=== PATIENT | female | born 1940 | race Two or more races ===

== ENCOUNTER 2019-06-13 16:06 | Inpatient (IN) | payer OTHER, MEDICAID ==
[~2019-06-13] VITALS: Ht 165.1 cm; Wt 76.9 kg
[2019-06-13] MEDS ORDERED: MORPHINE SULFATE 4 MG/ML SYR/VIAL IV ONE (16:45)
[2019-06-13] MEDS ORDERED: ONDANSETRON HCL 4 MG/2 ML VIAL IV ONE (16:45)
[2019-06-13 17:17] LABS: Basophils % (auto) 0.6 % (0.0-2.0); Mean Corpuscular Hemoglobin 35.1 pg (28.0-32.0); Mean Corpuscular Hgb Conc. 34.9 g/dL (32.0-36.0); Mean Corpuscular Volume 100.4 fL (80.0-100.0); Red Cell Distribution Width 14.5 % (11.8-14.3)
[2019-06-13 17:18] LABS: Basophils # (auto) 0 uL; Eosinophils # (auto) 0.2 uL; Eosinophils % (auto) 2.9 % (0.0-7.0); Hematocrit 30.7 % (36.0-46.0); Hemoglobin 10.7 g/dL (12.2-16.2); Lymphocytes # (auto) 1.7 uL; Lymphocytes % (auto) 21.8 % (10.0-50.0); Monocytes # (auto) 0.5 uL; Monocytes % (auto) 7.1 % (0.0-12.0); Neutrophils # (auto) 5.2 uL; Neutrophils % (auto) 67.6 % (37.0-80.0); Platelet Count (auto) 304 10^3/uL (140-450); Red Blood Cells 3.06 10^6/uL (4.0-5.20); White Blood Cell 7.7 10^3/uL (4.4-10.8)
[2019-06-13 17:25] LABS: INR 1.18 (0.9-1.15); Partial Thromboplastin Time 30.2 sec (23.64-32.05)
[2019-06-13 17:27] LABS: Albumin 3.4 g/dL (3.4-5.0); BUN/Creatinine Ratio 4.3; Calcium 8.2 mg/dL (8.5-10.1)
[2019-06-13 17:29] LABS: Lactic Acid w/Reflex 2.1 mmol/L (0.4-2.0)
[2019-06-13 17:31] LABS: Potassium 2.8 mmol/L (3.5-5.1)
[2019-06-13 17:32] LABS: Bilirubin, Total 0.4 mg/dL (0.2-1.0); Total Protein 7.6 g/dL (6.4-8.2)
[2019-06-13] MEDS ORDERED: IOHEXOL 300 MG/ML 100ML BOTTLE IJ ONE (18:10)
[2019-06-13] MEDS ORDERED: POTASSIUM EFFERVESENT TAB 25 MEQ PO ONE (18:15)
[2019-06-13] MEDS ORDERED: LEVOFLOXACIN 500MG 100 ML IV ONE (18:45)
[2019-06-13] MEDS ORDERED: FUROSEMIDE 20 MG/2 ML VIAL ONE (20:37)
[2019-06-13] MEDS ORDERED: ONDANSETRON HCL 4 MG/2 ML VIAL IV PRN (21:15)
[2019-06-13] MEDS ORDERED: ACETAMINOPHEN 325 MG TAB PO PRN (21:15)
[2019-06-13] MEDS ORDERED: DEXTROSE (50%) 50ML SYRG IV PRN (21:15)
[2019-06-13] MEDS ORDERED: TEMAZEPAM 15 MG CAP PO PRN (21:15)
[2019-06-13] MEDS ORDERED: NITROGLYCERIN 0.4 MG SL TAB SL PRN (21:45)
[2019-06-13] MEDS ORDERED: MORPHINE SULF INJ 2 MG/ML SYRINGE 1ML IV PRN (21:45)
[2019-06-13] MEDS: CARVEDILOL 3.125 MG TAB PO SCH (22:47)
[2019-06-13] MEDS: APIXABAN 5 MG TAB PO SCH (22:48)
[2019-06-14] VITALS (7 sets, daily range): BP systolic 132–154; BP diastolic 57–79
--- NOTE | 2019-06-14 | NUR ---
Telemetry admit from ER OGODCLEMENCIA VEGA admitted to Telemetry unit after SBAR received. Patient oriented to ASHLEE WHITTNE RN primary RN, unit, room, bed, and unit policies regarding patient care and visiting hours. Patient complaining of 10/10 pain to the back, unable to lie on back, spinal bones visible from back. See eMar for pain management. Patient now on continuous telemetry monitoring, tele box # 82 and telemetry reading on arrival to unit is SR. Patient encouraged to call if they she needs something. All questions and concerns addressed, patient verbalized understanding. Will continue to monitor q1h and prn.
[2019-06-14] MEDS: ACCU-CHEK COMFORT CURVE STRIP VI SCH ×5 (00:30→23:30)
[2019-06-14] MEDS: HYDROcodone-ACET 5/325MG TAB PO PRN ×4 (00:31→21:13)
[2019-06-14] MEDS ORDERED: FURO40TA4 PO (01:48)
[2019-06-14] MEDS ORDERED: OMEP20TA PO (01:48)
[2019-06-14] MEDS ORDERED: CARV6.2551 PO (01:48)
[2019-06-14] MEDS ORDERED: AMLO5TAB15 PO (01:48)
[2019-06-14] MEDS ORDERED: APIX5TAB PO (01:48)
[2019-06-14] MEDS ORDERED: ACET30TA15 PO (01:48)
[2019-06-14] MEDS ORDERED: MEGE40TA15 PO (01:48)
--- NOTE | 2019-06-14 04:29 | NUR ---
MRSA SWAB SENT MRSA SWAB SENT TO LAB.
[2019-06-14] MEDS: InsuLIN REG 1unit/0.01ml Soln (100units/ml) SC SCH ×5 (05:17→23:29)
[2019-06-14] MEDS: FUROSEMIDE 40 MG TAB PO SCH ×2 (05:26→17:56)
[2019-06-14 05:56] LABS: Basophils # (auto) 0 uL; Basophils % (auto) 0.4 % (0.0-2.0); Eosinophils # (auto) 0.2 uL; Eosinophils % (auto) 3.7 % (0.0-7.0); Hematocrit 28.3 % (36.0-46.0); Hemoglobin 9.9 g/dL (12.2-16.2); Lymphocytes # (auto) 1.6 uL; Lymphocytes % (auto) 25.1 % (10.0-50.0); Mean Corpuscular Hemoglobin 35.1 pg (28.0-32.0); Mean Corpuscular Volume 100.2 fL (80.0-100.0); Monocytes # (auto) 0.5 uL; Monocytes % (auto) 7.7 % (0.0-12.0); Neutrophils % (auto) 63.1 % (37.0-80.0); Platelet Count (auto) 244 10^3/uL (140-450); Red Blood Cells 2.83 10^6/uL (4.0-5.20); Red Cell Distribution Width 14.6 % (11.8-14.3); White Blood Cell 6.4 10^3/uL (4.4-10.8)
[2019-06-14 06:26] LABS: BUN/Creatinine Ratio 4.2; Calcium 7.8 mg/dL (8.5-10.1)
[2019-06-14 06:34] LABS: Potassium 2.9 mmol/L (3.5-5.1)
--- NOTE | 2019-06-14 06:36 | NUR ---
K CRITICAL LAB K 2.9. AWARE OF PREVIOUS K 2.8 WHEN PATIENT WAS IN ER AND ORDERS WERE GIVEN. HOSPITALIST PAGED. AWAITING CALL BACK. WILL CONTINUE TO MONITOR.
--- NOTE | 2019-06-14 07:58 | NUR ---
Opening Shift Note Assumed care of patient, awake and alert. No S/S of distress/SOB or pain. Instructed on POC and to call for assist PRN, will continue to monitor for changes Q1hr and PRN.
[2019-06-14] MEDS ORDERED: POTASSIUM CHL 20 Meq TABLET PO ONE (08:15)
[2019-06-14] MEDS: CALCIUM ACETATE 667 MG CAP PO SCH ×3 (08:17→17:55)
[2019-06-14] MEDS: APIXABAN 5 MG TAB PO SCH ×2 (09:14→21:12)
[2019-06-14] MEDS: PANTOPRAZOLE 40 MG TAB PO SCH (09:14)
[2019-06-14] MEDS: CARVEDILOL 3.125 MG TAB PO SCH ×2 (09:15→21:12)
[2019-06-14] MEDS: amLODIPine BESYLATE 5 MG TAB PO SCH (09:15)
[2019-06-14] MEDS ORDERED: INFLUENZA QUAD 2019-2020 0.5ml SYRG IM ONE (10:00)
[2019-06-14] MEDS ORDERED: PNEUMOCOCCAL VACC POLYS 25 MCG/0.5 ML VIAL IM ONE (10:00)
--- NOTE | 2019-06-14 11:15 | NUR ---
Hospitalist Rounding Dr. Grey rounded on patient.
[2019-06-14 11:24] LABS: CRP High Sensitivity 0.15 mg/dL (< 0.3)
[2019-06-14 11:38] LABS: Folate (Folic Acid) 7.66 ng/mL (5.38-24)
[2019-06-14] MEDS ORDERED: VANCOMYCIN PER PHARMACY 0 MG IV SCH (16:00)
[2019-06-14] MEDS ORDERED: CYANOCOBALAMIN (B-12) 1000 MCG/1 ML VIAL SUBCUT ONE (16:00)
[2019-06-14] MEDS ORDERED: VANCOMYCIN 1GM/250ML 250 ML IV ONE (16:30)
[2019-06-14] MEDS ORDERED: MEROPENEM 1GM IVPB 100 ML IV SCH (18:00)
--- NOTE | 2019-06-14 18:00 | NUR ---
Accu Check Blood Sugar 131. Insulin held, patient ate 25% of her lunch and refusing supper.
[2019-06-14 20:56] LABS: Urine Bacteria FEW /hpf (None Seen); Urine Blood 2+ /uL (Negative); Urine Specific Gravity 1.026 (1.001-1.035); Urine WBC 1120 /hpf (0 - 5)
[2019-06-14] MEDS ORDERED: LEVOFLOXACIN 250MG 50 ML IV SCH (22:00)
--- NOTE | 2019-06-14 22:00 | NUR ---
PAGED HOSPITALIST RE: PT.ANTIBIOTIC WAS HELD BY PHARMACY, PT. ALLERGY TO PEN[place]ILLIN, WAITING TO CALL BACK.
[2019-06-15] MEDS: HYDROcodone-ACET 5/325MG TAB PO PRN ×4 (03:12→22:31)
[2019-06-15] MEDS: InsuLIN REG 1unit/0.01ml Soln (100units/ml) SC SCH ×3 (05:12→18:11)
[2019-06-15] MEDS: ACCU-CHEK COMFORT CURVE STRIP VI SCH ×3 (05:14→18:10)
[2019-06-15 05:27] VITALS: BP 147/60
[2019-06-15] MEDS: FUROSEMIDE 40 MG TAB PO SCH ×2 (05:31→18:13)
[2019-06-15 05:48] LABS: Basophils # (auto) 0.1 uL; Basophils % (auto) 1.3 % (0.0-2.0); Eosinophils # (auto) 0.3 uL; Eosinophils % (auto) 3.6 % (0.0-7.0); Hematocrit 31.2 % (36.0-46.0); Hemoglobin 10.6 g/dL (12.2-16.2); Lymphocytes # (auto) 1.6 uL; Lymphocytes % (auto) 19.8 % (10.0-50.0); Mean Corpuscular Hemoglobin 34.7 pg (28.0-32.0); Mean Corpuscular Hgb Conc. 34.1 g/dL (32.0-36.0); Mean Corpuscular Volume 101.8 fL (80.0-100.0); Monocytes # (auto) 0.6 uL; Monocytes % (auto) 7.3 % (0.0-12.0); Neutrophils # (auto) 5.6 uL; Nucleated Red Blood Cells % 0.1 %; Platelet Count (auto) 258 10^3/uL (140-450); Red Blood Cells 3.07 10^6/uL (4.0-5.20); Red Cell Distribution Width 14.5 % (11.8-14.3); White Blood Cell 8.2 10^3/uL (4.4-10.8)
[2019-06-15 06:05] LABS: Albumin 3.1 g/dL (3.4-5.0); Calcium 8.4 mg/dL (8.5-10.1); Magnesium 1.9 mg/dL (1.6-2.6); Potassium 3.8 mmol/L (3.5-5.1)
[2019-06-15 06:10] LABS: BUN/Creatinine Ratio 4.6; Bilirubin, Total 0.3 mg/dL (0.2-1.0); Total Protein 6.8 g/dL (6.4-8.2)
[2019-06-15] MEDS ORDERED: SODIUM CHL 0.9% 1000 ML BAG XX ONE (07:00)
--- NOTE | 2019-06-15 08:10 | NUR ---
nurse transitional Ary at bedside for patient's hemodialysis.
[2019-06-15] MEDS: CALCIUM ACETATE 667 MG CAP PO SCH ×3 (08:32→18:13)
--- NOTE | 2019-06-15 08:40 | NUR ---
[place] 5/325 PO given for pain.
[2019-06-15 09:00] VITALS: BP 152/63
--- NOTE | 2019-06-15 10:00 | NUR ---
Heparin 10,000 units (1 vial) endorsed to Dialysis Nurse Ary.
--- NOTE | 2019-06-15 11:30 | NUR ---
Hemodialysis done. About 3 L off, BP = 144/76, Heart Rate = 64 as per jewel staker Ary.
--- NOTE | 2019-06-15 11:44 | NUR ---
Dr. Grey came over. planned to transfer the patient to [facility].
[2019-06-15] MEDS: APIXABAN 5 MG TAB PO SCH ×2 (12:17→21:30)
[2019-06-15] MEDS: amLODIPine BESYLATE 5 MG TAB PO SCH (12:17)
[2019-06-15] MEDS: CYANOCOBALAMIN 500 MCG TAB PO SCH (12:18)
[2019-06-15] MEDS: CARVEDILOL 3.125 MG TAB PO SCH ×2 (12:18→21:30)
[2019-06-15] MEDS: PANTOPRAZOLE 40 MG TAB PO SCH (12:18)
[2019-06-15 13:00] VITALS: BP 145/64
--- NOTE | 2019-06-15 13:13 | NUR ---
Faxed transfer order/clinical information to [facility].
--- NOTE | 2019-06-15 13:44 | NUR ---
I spoke with Dona at the [facility] transfer center [phone]-provided her with additional clinical information as requested.
--- NOTE | 2019-06-15 14:16 | NUR ---
I called [facility] and spoke with Es in Admitting [phone] regarding the transfer request for this patient. Faxed her requested clinical information, she will speak with her MD and give me a call back.
--- NOTE | 2019-06-15 14:45 | NUR ---
Patient's daughter, granddaughter Nida ([phone]) at bedside. Nida requested if the doctor could call her regarding the patient's plan of care, her mother (patient's daughter) speaks Malay only.
--- NOTE | 2019-06-15 15:29 | NUR ---
assessment Patient is a 78 year old female who is alert and oriented who is Telugu speaking. Michelle RO is translating for us. Prior to admission patient lived home with family and functioned with assistance. Patient has a fww and a wheelchair for home use. Patient is on service with [facility] T TH Sat at 4am. Patient has medical transport to dialysis. I informed patient of her ss consult to transfer for higher level of care. I informed patient she has a right to speak to a social work therapist regarding all care. I informed patient she has a right to participate in any and all discharge planning. Patient does not have a POA and advanced directive. I have offered patient information on POA and advanced directives. I informed the patient the advantages and benefits of having an Advanced Directive. Patient verbalized understanding and agreed to discharge plan. Addendum: 06/15/19 at 1537 by Lenka ALFARO Amended: Links added.
[2019-06-15] MEDS ORDERED: VANCOMYCIN 1GM/250ML 250 ML IV ONE (16:00)
--- NOTE | 2019-06-15 16:17 | NUR ---
Patient stated she's in pain. [place] 5/325 given to patient.
[2019-06-15 17:00] VITALS: BP 123/59
--- NOTE | 2019-06-15 18:15 | NUR ---
assumed care, pt. awake, relatives at bedside, no c/o pain, not in distress.
--- NOTE | 2019-06-15 19:15 | NUR ---
assumed care, pt. awake, no c/o pain, relatives at bedside, not in distress.
[2019-06-15] MEDS ORDERED: EPOETIN ALFA 4,000 UNIT/ML VL SC ONE (21:00)
[2019-06-15] MEDS: ATORVASTATIN 20 MG TAB PO SCH (21:30)
[2019-06-15 22:00] VITALS: BP 122/53
[2019-06-16] MEDS: LEVOFLOXACIN 500MG 100 ML IV SCH ×2 (03:36→22:20)
[2019-06-16] MEDS: ACCU-CHEK COMFORT CURVE STRIP VI SCH ×5 (03:37→23:44)
[2019-06-16 05:00] VITALS: BP 138/53
[2019-06-16] MEDS: HYDROcodone-ACET 5/325MG TAB PO PRN ×4 (05:16→20:10)
[2019-06-16] MEDS: FUROSEMIDE 40 MG TAB PO SCH ×2 (05:16→17:16)
[2019-06-16] MEDS: InsuLIN REG 1unit/0.01ml Soln (100units/ml) SC SCH ×5 (05:50→23:44)
[2019-06-16 06:47] LABS: Albumin 3.1 g/dL (3.4-5.0); Calcium 8.7 mg/dL (8.5-10.1); Potassium 3.5 mmol/L (3.5-5.1)
[2019-06-16 06:49] LABS: BUN/Creatinine Ratio 3.8
[2019-06-16 06:51] LABS: Bilirubin, Total 0.5 mg/dL (0.2-1.0); Total Protein 7.1 g/dL (6.4-8.2)
[2019-06-16 09:00] VITALS: BP 151/72
[2019-06-16] MEDS: CARVEDILOL 3.125 MG TAB PO SCH ×3 (09:39→23:44)
[2019-06-16] MEDS: CALCIUM ACETATE 667 MG CAP PO SCH ×3 (09:39→17:16)
[2019-06-16] MEDS: PANTOPRAZOLE 40 MG TAB PO SCH (09:39)
--- NOTE | 2019-06-16 09:39 | NUR ---
Patient stated she's in pain. [place] 5/325 PO given for pain.
[2019-06-16] MEDS: amLODIPine BESYLATE 5 MG TAB PO SCH (09:40)
[2019-06-16] MEDS: CYANOCOBALAMIN 500 MCG TAB PO SCH (09:40)
[2019-06-16] MEDS: APIXABAN 5 MG TAB PO SCH ×2 (09:40→21:27)
--- NOTE | 2019-06-16 09:40 | NUR ---
Patient's son-in-law came over, stated they don't want the patient be transferred to another hospital. Explained to son-in-law we're waiting for the doctor to come over.
--- NOTE | 2019-06-16 11:20 | NUR ---
Charge Nurse Michelle spoke with the patient and family. Family refused to have the patient be transferred to another hospital for spinal surgery. IV line is out, IV catheter out, pressure dressing applied.
--- NOTE | 2019-06-16 11:36 | NUR ---
Dr. Grey at bedside. Sheridan translates in Luxembourgish for the patient.
--- NOTE | 2019-06-16 11:39 | NUR ---
Dr. Grey made aware Charge Nurse Michelle spoke with the patient and family. Family does not want the patient be transferred to another hospital for a spinal surgery. Informed Dr. Grey that patient has no IV access anymore, if he can order the IV antibiotics to be converted to pill form instead.
--- NOTE | 2019-06-16 11:45 | NUR ---
Called belen Alva ([phone]). Phone on [employer]. Left a message to call back. Dr. Grey made aware. Dr. Grey to call the granddaughter.
--- NOTE | 2019-06-16 11:47 | NUR ---
Dr. Grey ordered to [facility]. Paged the [facility].
--- NOTE | 2019-06-16 12:40 | NUR ---
Firmware Engineer Shazia Ryan called back. Shazia to call Dr. Grey again.
--- NOTE | 2019-06-16 12:42 | NUR ---
I received a call from Love at [facility] transfer center [phone] letting me know that her MD is declining this patient for transfer because they think this is something that our orthopedic doctor should be able to take care of. I called Dr. Grey to make him aware and to discuss the plan of care for this patient-awaiting return call.
--- NOTE | 2019-06-16 12:45 | NUR ---
New IV line inserted on the left hand, 22 gauge by Charge Nurse Michelle.
[2019-06-16 13:00] VITALS: BP 144/69
--- NOTE | 2019-06-16 14:26 | NUR ---
I spoke with Dr. Grey regarding the plan of care for this patient, he said no need to transfer to higher level of care at this time.
--- NOTE | 2019-06-16 15:12 | NUR ---
[place] 5/325 PO given for pain.
[2019-06-16 17:00] VITALS: BP 130/61
--- NOTE | 2019-06-16 19:45 | NUR ---
Opening Shift Note Assumed care of patient, AOX4. No S/S of distress/SOB. Fall and safety precautions in place. Call light within reach and able to use. Instructed on POC and to call for assist PRN, will continue to monitor for changes Q1hr and PRN.
[2019-06-16] MEDS: ATORVASTATIN 20 MG TAB PO SCH (21:27)
[2019-06-16 21:38] VITALS: BP 126/63
[2019-06-17] MEDS: HYDROcodone-ACET 5/325MG TAB PO PRN ×4 (01:15→15:41)
[2019-06-17 04:38] VITALS: BP 134/69
[2019-06-17] MEDS: FUROSEMIDE 40 MG TAB PO SCH (05:11)
[2019-06-17] MEDS: ACCU-CHEK COMFORT CURVE STRIP VI SCH ×2 (05:11→12:07)
[2019-06-17] MEDS: InsuLIN REG 1unit/0.01ml Soln (100units/ml) SC SCH ×2 (05:11→12:07)
--- NOTE | 2019-06-17 06:09 | NUR ---
DIALYSIS DIALYSIS NURSE AT BEDSIDE
[2019-06-17 06:13] LABS: BUN/Creatinine Ratio 4.7; Calcium 8.9 mg/dL (8.5-10.1); Potassium 3.8 mmol/L (3.5-5.1)
[2019-06-17] MEDS ORDERED: SODIUM CHL 0.9% 1000 ML BAG XX ONE (07:00)
--- NOTE | 2019-06-17 08:00 | NUR ---
Opening Shift Note Assumed care of patient, awake and alert. No S/S of distress/SOB or pain. Ongoing hemodialysis. Instructed on POC and to call for assist PRN, will continue to monitor for changes Q1hr and PRN.
[2019-06-17 09:00] VITALS: BP 140/64
--- NOTE | 2019-06-17 09:00 | NUR ---
Hemodialysis done, 3L out.
[2019-06-17] MEDS: CYANOCOBALAMIN 500 MCG TAB PO SCH (09:47)
[2019-06-17] MEDS: APIXABAN 5 MG TAB PO SCH (09:47)
[2019-06-17] MEDS: CALCIUM ACETATE 667 MG CAP PO SCH ×2 (09:47→12:00)
[2019-06-17] MEDS: CARVEDILOL 3.125 MG TAB PO SCH (09:48)
[2019-06-17] MEDS: PANTOPRAZOLE 40 MG TAB PO SCH (09:48)
[2019-06-17] MEDS: amLODIPine BESYLATE 5 MG TAB PO SCH (09:49)
[2019-06-17 12:35] VITALS: BP 143/59
[2019-06-17] MEDS ORDERED: VANCOMYCIN 500 MG in D5W 5% 100 ML IV ONE (16:00)
--- NOTE | 2019-06-17 16:18 | NUR ---
Clarified with granddaughter Nida, patient already received flu and Pneumococcal vaccines.
[2019-06-17 16:21] VITALS: BP 141/54
--- NOTE | 2019-06-17 17:00 | NUR ---
Discharge instructions given as ordered. Encourage to follow up with PMD Arielle Hicks on 07-05-19 at 2:45pm as instructed. Per Dr. Grey, instructions given to patient's granddaughter Nida to call his office on Wednesday. All questions and concerns addressed. Patient verbalized understanding. Medication reconciliation form completed and copy given to pain. IV removed with catheter intact, pressure dressing applied. Telemetry unit returned to ICU. Patient taken to vehicle via wheelchair with all personal belongings, accompanied by staff and family member. No distress noted at time of departure.
== END 2019-06-17 17:00 | disposition home or self-care (01) | DRG 551 ==
LOC: ER 16:06 → TELE 16:07 → TELE-WESTW 23:25
PROVIDERS: ADMIT Nurse Practitioner; ATTEND Internal Medicine
PROC: 5A1D70Z Performance of Urinary Filtration, Intermittent, Less than 6 Hours Per Day (ICD-10-PCS; principal; 2019-06-15)
PROC: 5A1D70Z Performance of Urinary Filtration, Intermittent, Less than 6 Hours Per Day (ICD-10-PCS; 2019-06-17)
DX: M48.061 Spinal stenosis, lumbar region without neurogenic claudication (principal); J18.9 Pneumonia, unspecified organism; N18.6 End stage renal disease; I50.43 Acute on chronic combined systolic (congestive) and diastolic (congestive) heart failure; E87.2 Acidosis; J98.11 Atelectasis; I13.2 Hypertensive heart and chronic kidney disease with heart failure and with stage 5 chronic kidney disease, or end stage renal disease; M54.5 Low back pain; G89.29 Other chronic pain; E87.5 Hyperkalemia; D63.8 Anemia in other chronic diseases classified elsewhere; E11.22 Type 2 diabetes mellitus with diabetic chronic kidney disease; Z79.4 Long term (current) use of insulin; Z79.01 Long term (current) use of anticoagulants; I07.1 Rheumatic tricuspid insufficiency; E87.6 Hypokalemia; Z95.0 Presence of cardiac pacemaker; Z98.1 Arthrodesis status; Z88.0 Allergy status to penicillin
CPT/HCPCS: 36415; 71045; 72132; 80048; 80053; 80061; 80202; 81001; 82607; 82746; 82962; 83036; 83605; 83735; 83880; 84443; 84484; 85025; 85048; 85610; 85652; 85730; 86141; 87040; 87081; 90935; 93306; 96365; 96375; G0378; J1642; J1815; J1956; J2185; J2405; J7060

== ENCOUNTER 2019-07-15 12:37 | Inpatient (IN) | payer OTHER, MEDICAID ==
[~2019-07-15] VITALS: Ht 165.1 cm; Wt 81.0 kg
[~2019-07-15 12:37] MED LIST: ACET30TA15 PO; AMLO5TAB15 PO; APIX5TAB PO; CARV6.2551 PO; FURO40TA4 PO; MEGE40TA15 PO; OMEP20TA PO
[2019-07-15 15:14] LABS: Basophils # (auto) 0.1 uL
[2019-07-15 15:15] LABS: Basophils % (auto) 0.8 % (0.0-2.0); Eosinophils # (auto) 0.1 uL; Hematocrit 31.6 % (36.0-46.0); Lymphocytes # (auto) 1.2 uL; Lymphocytes % (auto) 16.5 % (10.0-50.0); Mean Corpuscular Hemoglobin 35.4 pg (28.0-32.0); Mean Corpuscular Hgb Conc. 34.7 g/dL (32.0-36.0); Monocytes # (auto) 0.5 uL; Monocytes % (auto) 7.5 % (0.0-12.0); Neutrophils # (auto) 5.4 uL; Neutrophils % (auto) 74.2 % (37.0-80.0); Nucleated Red Blood Cells % 0.1 %; Platelet Count (auto) 336 10^3/uL (140-450); Red Blood Cells 3.09 10^6/uL (4.0-5.20); Red Cell Distribution Width 15.4 % (11.8-14.3); White Blood Cell 7.3 10^3/uL (4.4-10.8)
[2019-07-15 15:25] LABS: Albumin 3.5 g/dL (3.4-5.0); Calcium 8.7 mg/dL (8.5-10.1)
[2019-07-15 15:30] LABS: BUN/Creatinine Ratio 3.5; Bilirubin, Total 0.5 mg/dL (0.2-1.0); Total Protein 7.4 g/dL (6.4-8.2)
[2019-07-15 16:19] LABS: Potassium 2.9 mmol/L (3.5-5.1)
[2019-07-15] MEDS ORDERED: POTASSIUM CHL 20MEQ/100ML 100 ML IV ONE (16:45)
[2019-07-15 16:56] LABS: INR 1.18 (0.9-1.15); Partial Thromboplastin Time 29.6 sec (23.64-32.05)
[2019-07-15] MEDS ORDERED: MORPHINE SULF INJ 2 MG/ML SYRINGE 1ML IV PRN (20:15)
[2019-07-15] MEDS ORDERED: DOCUSATE SOD 100 MG CAP PO PRN (20:15)
[2019-07-15] MEDS ORDERED: NITROGLYCERIN 0.4 MG SL TAB SL PRN (20:15)
[2019-07-15] MEDS ORDERED: ACETAMINOPHEN 325 MG TAB PO PRN (20:15)
[2019-07-15] MEDS ORDERED: LORazepam 0.5 MG TAB PO PRN (20:15)
[2019-07-15] MEDS ORDERED: DEXTROSE (50%) 50ML SYRG IV PRN (20:15)
[2019-07-15] MEDS: ONDANSETRON HCL 4 MG/2 ML VIAL IV PRN (22:02)
[2019-07-15] MEDS: MORPHINE SULFATE 4 MG/ML SYR/VIAL IV PRN (22:03)
[2019-07-15] MEDS ORDERED: diphenhdrAMINE HCL 50 MG/1 ML VL IV ONE (22:15)
[2019-07-16 03:30] VITALS: BP 145/71
--- NOTE | 2019-07-16 03:40 | NUR ---
Telemetry admit from [facility] admitted to Telemetry unit. Patient oriented to Edita SheriffRN primary RN, unit, room, bed, and unit policies regarding patient care and visiting hours. Patient now on continuous telemetry monitoring, tele box #75 and telemetry reading on arrival to unit is NSR. Patient awake, AAOx4. No S/S of distress/SOB. Pain 10/10 to back. On 2L oxygen via nasal cannula. Wheelchair at bedside. Bed in lowest locked position, side rails up x2, call light within reach. Instructed on POC and to call for assist PRN, will continue to monitor for changes Q1hr and PRN. Weighed by bed scale and encouraged to call if they need something. All questions and concerns addressed, patient verbalized understanding. Will continue to monitor every hour and as needed.
[2019-07-16] MEDS: MORPHINE SULFATE 4 MG/ML SYR/VIAL IV PRN ×2 (03:42→15:04)
[2019-07-16] MEDS: ONDANSETRON HCL 4 MG/2 ML VIAL IV PRN ×2 (03:42→12:24)
[2019-07-16] MEDS: InsuLIN REG 1unit/0.01ml Soln (100units/ml) SC SCH ×6 (04:00→20:25)
[2019-07-16] MEDS: ACCU-CHEK COMFORT CURVE STRIP VI SCH ×6 (04:31→20:23)
--- NOTE | 2019-07-16 04:56 | NUR ---
MED REC PATIENT UNABLE TO VERIFY HOME MEDICATIONS. PATIENT TO HAVE DAUGHTER/CAREGIVER BRING IN LIST OF ALL ACTIVE HOME MEDICATIONS.
[2019-07-16 05:42] VITALS: BP 145/71
[2019-07-16 07:45] LABS: Basophils # (auto) 0.1 uL; Eosinophils # (auto) 0.2 uL; Mean Corpuscular Hemoglobin 35.3 pg (28.0-32.0); White Blood Cell 6.3 10^3/uL (4.4-10.8)
[2019-07-16 07:46] LABS: Eosinophils % (auto) 2.9 % (0.0-7.0); Hemoglobin 9.9 g/dL (12.2-16.2); Lymphocytes # (auto) 1.4 uL; Lymphocytes % (auto) 21.6 % (10.0-50.0); Mean Corpuscular Hgb Conc. 34.2 g/dL (32.0-36.0); Mean Corpuscular Volume 103.1 fL (80.0-100.0); Monocytes # (auto) 0.5 uL; Monocytes % (auto) 8.5 % (0.0-12.0); Neutrophils # (auto) 4.2 uL; Nucleated Red Blood Cells % 0.1 %; Platelet Count (auto) 298 10^3/uL (140-450); Red Blood Cells 2.81 10^6/uL (4.0-5.20); Red Cell Distribution Width 15.5 % (11.8-14.3)
--- NOTE | 2019-07-16 07:50 | NUR ---
Opening Shift Note Assumed care of patient, awake and alert, laying in bed uncomplaining. No S/S of distress/SOB or pain. Instructed on POC and to call for assist PRN, will continue to monitor for changes Q1hr and PRN.
[2019-07-16 08:06] LABS: BUN/Creatinine Ratio 3.5; Calcium 7.9 mg/dL (8.5-10.1)
[2019-07-16 08:38] VITALS: BP 131/61
[2019-07-16] MEDS ORDERED: amLODIPine BESYLATE 5 MG TAB PO SCH (10:00)
[2019-07-16] MEDS ORDERED: FUROSEMIDE 40 MG TAB PO SCH (10:00)
[2019-07-16] MEDS ORDERED: CARVEDILOL 3.125 MG TAB PO SCH (10:00)
[2019-07-16] MEDS ORDERED: APIXABAN 5 MG TAB PO SCH ×2 (10:00→11:25)
[2019-07-16] MEDS: MEGESTROL ACETATE 20 MG TAB PO SCH (10:08)
[2019-07-16] MEDS: PANTOPRAZOLE 40 MG TAB PO SCH (10:09)
[2019-07-16] MEDS: ACETAMINOPHEN/CODEINE#3 (300/30mg) TAB PO SCH (10:09)
--- NOTE | 2019-07-16 11:20 | NUR ---
Hospitalist Neetu Pond at bedside.
--- NOTE | 2019-07-16 11:41 | NUR ---
Medication Reconciliation Received order from Dr. Pond to continue Eliquis and Coreg as per home schedule. Entered in eMAR.
[2019-07-16 12:41] VITALS: BP 130/71
[2019-07-16 16:42] VITALS: BP 138/70
[2019-07-16] MEDS ORDERED: FUROSEMIDE 40 MG/4 ML VIAL IV ONE ×2 (19:00→19:30)
[2019-07-16] MEDS: LEVOFLOXACIN 500MG 100 ML IV SCH (20:26)
[2019-07-16] MEDS: CARVEDILOL 3.125 MG TAB PO SCH (21:15)
[2019-07-16] MEDS: APIXABAN 5 MG TAB PO SCH (21:15)
--- NOTE | 2019-07-16 22:00 | NUR ---
IV insertion IV access obtained, via clean sterile technique by inserting 22 gauge catheter at left wrist after attempt by Shelley Will IV secured properly. No trauma to site. Patient tolerated procedure well.
--- NOTE | 2019-07-16 22:00 | NUR ---
IV removal IV DC'd in the left forearm with clean sterile technique, catheter fully intact. Pressure dressing applied to site. Patient tolerated well.
[2019-07-16 22:02] VITALS: BP 140/68
[2019-07-17] MEDS: ACCU-CHEK COMFORT CURVE STRIP VI SCH ×7 (00:31→23:31)
--- NOTE | 2019-07-17 01:07 | NUR ---
Called Dr. Aleja Welsh for itching medicine with order of 5omg.cap.every 8 hours as needed.
[2019-07-17] MEDS: diphenhdrAMINE HCL 25 MG CAP PO PRN (01:39)
[2019-07-17] MEDS: InsuLIN REG 1unit/0.01ml Soln (100units/ml) SC SCH ×7 (03:56→23:32)
[2019-07-17 05:00] VITALS: BP 130/54
[2019-07-17] MEDS: FUROSEMIDE 40 MG/4 ML VIAL IV SCH ×2 (06:00→18:14)
[2019-07-17] MEDS ORDERED: SODIUM CHL 0.9% 1000 ML BAG XX ONE (07:00)
[2019-07-17 07:09] LABS: Basophils # (auto) 0 uL; Eosinophils # (auto) 0.2 uL; Lymphocytes # (auto) 0.8 uL; Lymphocytes % (auto) 10.4 % (10.0-50.0); Mean Corpuscular Hemoglobin 35.5 pg (28.0-32.0)
[2019-07-17 07:10] LABS: Basophils % (auto) 0.3 % (0.0-2.0); Hematocrit 31.6 % (36.0-46.0); Hemoglobin 10.6 g/dL (12.2-16.2); Mean Corpuscular Hgb Conc. 33.5 g/dL (32.0-36.0); Mean Corpuscular Volume 105.7 fL (80.0-100.0); Monocytes # (auto) 0.4 uL; Monocytes % (auto) 6.1 % (0.0-12.0); Neutrophils # (auto) 5.9 uL; Neutrophils % (auto) 80.2 % (37.0-80.0); Platelet Count (auto) 288 10^3/uL (140-450); Red Blood Cells 2.99 10^6/uL (4.0-5.20); Red Cell Distribution Width 15.7 % (11.8-14.3); White Blood Cell 7.3 10^3/uL (4.4-10.8)
[2019-07-17 07:34] LABS: Calcium 8.3 mg/dL (8.5-10.1); Magnesium 1.8 mg/dL (1.6-2.6); Potassium 3.5 mmol/L (3.5-5.1)
[2019-07-17 07:41] LABS: % Iron Saturation 20.8 % (15-50); BUN/Creatinine Ratio 4.9; Bilirubin, Total 0.4 mg/dL (0.2-1.0); Phosphorus 1.7 mg/dL (2.5-4.90); Total Protein 6.6 g/dL (6.4-8.2)
--- NOTE | 2019-07-17 07:43 | NUR ---
Report given to Shelley Pennington,patient is resting no distress.
--- NOTE | 2019-07-17 07:44 | NUR ---
Opening Shift Note Assumed care of patient, awake and alert. No S/S of distress/SOB or pain. Patient for hemodialysis today and patient is aware. Instructed on POC and to call for assist PRN, will continue to monitor for changes Q1hr and PRN.
[2019-07-17 07:46] LABS: INR 1.16 (0.9-1.15); Partial Thromboplastin Time 30.1 sec (23.64-32.05)
[2019-07-17 08:00] VITALS: BP 137/58
[2019-07-17 09:02] LABS: Ferritin 577.3 ng/mL (10-322)
--- NOTE | 2019-07-17 09:15 | NUR ---
Patient noted to be having hemodialysis in her room at this time.
[2019-07-17] MEDS: ACETAMINOPHEN/CODEINE#3 (300/30mg) TAB PO SCH (10:10)
--- NOTE | 2019-07-17 12:15 | NUR ---
Hemodialysis done and report received from federal appellate clerk. Patient tolerated the procedure well.
[2019-07-17] MEDS: PANTOPRAZOLE 40 MG TAB PO SCH (12:23)
[2019-07-17] MEDS: CARVEDILOL 3.125 MG TAB PO SCH ×2 (12:24→22:08)
[2019-07-17] MEDS: APIXABAN 5 MG TAB PO SCH ×2 (12:24→22:08)
[2019-07-17] MEDS: MEGESTROL ACETATE 20 MG TAB PO SCH (12:24)
[2019-07-17] MEDS: MORPHINE SULFATE 4 MG/ML SYR/VIAL IV PRN ×2 (12:46→22:10)
[2019-07-17 13:00] VITALS: BP_SYST 150; BP_SYST 186; BP_DIAS 71; BP_DIAS 96
[2019-07-17 17:00] VITALS: BP 134/58
--- NOTE | 2019-07-17 19:35 | NUR ---
Opening Shift Note Assumed care of patient, awake and alert oriented x4. Bed is in lowest locked position with bed rails up x2 and call light is within reach of the patient. No S/S of distress/SOB or pain noted. Instructed on POC and to call for assist PRN.
--- NOTE | 2019-07-17 21:30 | NUR ---
Pharmacy called: Pharmacy called for clarification from Dr. Grey regarding B12 injection for AM being contraindicated with Vitamin B12 lab value. Also asked for clarification regarding Levaquin AM dose and penicillin allergy. Dr. Grey not present at this time for clarification. Will notify AM nurse.
--- NOTE | 2019-07-17 21:55 | NUR ---
Radiology called: Radiology called for clarification of ultrasound order for right upper extremity, if for DVT or abscess rule out. Grey not available to clarify which order it was for and was not notified per report. Will make Day shift RN aware for clarification.
[2019-07-17 22:00] VITALS: BP 131/61
[2019-07-17] MEDS: ATORVASTATIN 20 MG TAB PO SCH (22:09)
[2019-07-18] MEDS: InsuLIN REG 1unit/0.01ml Soln (100units/ml) SC SCH ×5 (04:00→20:00)
[2019-07-18] MEDS: ACCU-CHEK COMFORT CURVE STRIP VI SCH ×5 (04:57→20:00)
[2019-07-18 05:00] VITALS: BP 133/65
--- NOTE | 2019-07-18 05:00 | NUR ---
Family member at bedside: Family member is at the bedside and brought patient her nasal decongestant spray she takes at home. Patient is requesting to use spray. Will page hospitalist.
--- NOTE | 2019-07-18 05:26 | NUR ---
Hospitalist called back: Hospitalist alan called back and approved for patient to take nasal decongestant spray that patient brought up from home. To place orders.
[2019-07-18] MEDS: FUROSEMIDE 40 MG/4 ML VIAL IV SCH ×2 (06:05→17:59)
--- NOTE | 2019-07-18 06:45 | NUR ---
POM sent to pharmacy: POM med sent to pharmacy and notified them to send the med as soon as possible for the patient.
--- NOTE | 2019-07-18 07:12 | NUR ---
OPENING SHIFT NOTES Assumed care of patient from night stocker RN. Patient is alert and oriented x4, no sign s of distress noted. Patient was updated on the plan of care and verbalized understanding. Wheelchair noted at bedside. Bed is locked, in the lowest position, side rails up x2 and call light is in reach. Patient was encouraged to call for assistance when needed.
--- NOTE | 2019-07-18 08:06 | NUR ---
Patient refused Insulin Patient blood glucose level 152, patient refused insulin. Educated patient on insulin usage and dose, patient verbalized understanding but continues to refuse.
--- NOTE | 2019-07-18 08:42 | NUR ---
Paged Dr. Grey for order clarification for ultrasound, awaiting call back.
[2019-07-18 09:00] VITALS: BP 144/71
[2019-07-18] MEDS: AFRIN NASAL SPRAY EACHNOSTRI PRN ×2 (09:05→23:06)
[2019-07-18] MEDS: MORPHINE SULFATE 4 MG/ML SYR/VIAL IV PRN (09:05)
--- NOTE | 2019-07-18 09:20 | NUR ---
ANGELLA AT BEDSIDE No new orders received.
[2019-07-18] MEDS ORDERED: CYANOCOBALAMIN (B-12) 1000 MCG/1 ML VIAL SUBCUT SCH (10:00)
[2019-07-18] MEDS: diphenhdrAMINE HCL 25 MG CAP PO PRN (10:31)
[2019-07-18] MEDS: APIXABAN 5 MG TAB PO SCH ×2 (10:32→22:31)
[2019-07-18] MEDS: MEGESTROL ACETATE 20 MG TAB PO SCH (10:32)
[2019-07-18] MEDS: PANTOPRAZOLE 40 MG TAB PO SCH (10:32)
[2019-07-18] MEDS: CARVEDILOL 3.125 MG TAB PO SCH ×2 (10:33→22:30)
[2019-07-18] MEDS: ACETAMINOPHEN/CODEINE#3 (300/30mg) TAB PO SCH (10:33)
--- NOTE | 2019-07-18 11:30 | NUR ---
assessment Patient is a 78 year old female who is German speaking. Kristan SW1 translated for us. Prior to admission patient lived home with her granddaughter Radha and functioned with assistance. Per patient she will return home to her prior living arrangements post discharge and family will transport her home. Patient is on dialysis with [facility]. Patient has a wheelchair for home use. Patients PCP is Dr Grey. Patient has good family support. Patient feels safe returning home on discharge. Patient has no post discharge needs at this time. I informed patient she has a right to speak to a social science analyst regarding all care. I informed patient she has a right to participate in any and all discharge planning. Patient does not have a POA and advanced directive. I have offered patient information on POA and advanced directives. I informed the patient the advantages and benefits of having an Advanced Directive. Patient verbalized understanding and agreed to discharge plan. Addendum: 07/19/19 at 1454 by Lenka ALFARO Amended: Links added.
[2019-07-18 13:00] VITALS: BP 148/67
--- NOTE | 2019-07-18 16:07 | NUR ---
Nutrition Assessment Notes Please refer to link for full assessment notes Est energy needs: 2592-2198 kcals (30-35 kcals /kg Adj BW) d/t pt ESRD/HD Est protein needs: 69-75 gms/day (1.1-1.2 gm/kg AdjBW) d/t pt ESRD/HD Will continue to monitor and reassess prn Addendum: 07/18/19 at [address] Amended: Links added.
[2019-07-18 17:00] VITALS: BP 136/64
--- NOTE | 2019-07-18 19:18 | NUR ---
Closing shift notes Care endorsed to maintenance technician 3rd shift RN. No signs of distress noted.
[2019-07-18] MEDS: LEVOFLOXACIN 500MG 100 ML IV SCH (19:30)
--- NOTE | 2019-07-18 19:30 | NUR ---
Opening Shift Note Assumed care of patient, awake and alert. Maltese speaking. No S/S of distress/SOB or pain. 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 Patient is ambulatory with the use of a wheelchair at baseline. Instructed on POC and to call for assist PRN, will continue to monitor for changes Q1hr and PRN.
[2019-07-18 20:00] VITALS: BP 152/70
[2019-07-18 22:00] VITALS: BP 152/70
[2019-07-18] MEDS: ATORVASTATIN 20 MG TAB PO SCH (22:31)
[2019-07-18] MEDS: HYDROcodone-ACET 5/325MG TAB PO PRN (23:08)
--- NOTE | 2019-07-19 | NUR ---
Refusal BG is 151. Patient is refusing insulin coverage per the sliding scale.
[2019-07-19] MEDS: ACCU-CHEK COMFORT CURVE STRIP VI SCH ×4 (00:01→11:56)
[2019-07-19] MEDS: InsuLIN REG 1unit/0.01ml Soln (100units/ml) SC SCH ×4 (03:38→11:56)
[2019-07-19] MEDS: HYDROcodone-ACET 5/325MG TAB PO PRN ×2 (03:38→11:53)
--- NOTE | 2019-07-19 03:49 | NUR ---
Refusal BG is 140. Patient is refusing insulin per sliding scale. Medicated for 7/10 chronic back pain at this time as well.
[2019-07-19] MEDS: MORPHINE SULFATE 4 MG/ML SYR/VIAL IV PRN (04:42)
[2019-07-19 05:00] VITALS: BP 148/74
[2019-07-19] MEDS: diphenhdrAMINE HCL 25 MG CAP PO PRN (05:29)
[2019-07-19] MEDS: FUROSEMIDE 40 MG/4 ML VIAL IV SCH (05:29)
[2019-07-19] MEDS: ONDANSETRON HCL 4 MG/2 ML VIAL IV PRN (06:29)
[2019-07-19] MEDS ORDERED: SODIUM CHL 0.9% 1000 ML BAG XX ONE (07:00)
[2019-07-19 09:00] VITALS: BP 146/67
--- NOTE | 2019-07-19 09:20 | NUR ---
Dialysis nurse at bedside, Dialysis started.
[2019-07-19] MEDS: PANTOPRAZOLE 40 MG TAB PO SCH (09:55)
[2019-07-19] MEDS: MEGESTROL ACETATE 20 MG TAB PO SCH (09:56)
[2019-07-19] MEDS: ACETAMINOPHEN/CODEINE#3 (300/30mg) TAB PO SCH (09:56)
[2019-07-19 13:00] VITALS: BP 153/76
--- NOTE | 2019-07-19 13:00 | NUR ---
DIALYSIS NOTE PER DIAYLSIS NURSE 3 LITERS TAKEN OFF END VITALS 159/73 HEART RATE 69.
[2019-07-19] MEDS: APIXABAN 5 MG TAB PO SCH (13:39)
[2019-07-19] MEDS: CARVEDILOL 3.125 MG TAB PO SCH (13:40)
--- NOTE | 2019-07-19 15:44 | NUR ---
PATIENT BLOOD PRESSURE 159/70 PER DOCTOR GÓMEZ PATIENT OKAY TO DISCHARGE.
--- NOTE | 2019-07-19 15:53 | NUR ---
Discharge instructions given as ordered. Encourage to follow up with PMD as instructed. All questions and concerns addressed. Patient verbalized understanding. Medication reconciliation form completed and copy given to patient. Home medications held in Pharmacy returned to patient, and NO needed vaccines given. IV removed with catheter intact, pressure dressing applied. Telemetry unit returned to ICU. Patient taken to vehicle via wheelchair with all personal belongings, accompanied by staff and family member. No distress noted at time of departure.
== END 2019-07-19 15:53 | disposition home or self-care (01) | DRG 682 ==
LOC: ER 12:42 → TELE 12:43 → TELE-WESTW 07-16 03:31
PROVIDERS: ADMIT Hospitalist; ATTEND Internal Medicine
PROC: 5A1D70Z Performance of Urinary Filtration, Intermittent, Less than 6 Hours Per Day (ICD-10-PCS; 2019-07-17)
PROC: 5A1D70Z Performance of Urinary Filtration, Intermittent, Less than 6 Hours Per Day (ICD-10-PCS; principal; 2019-07-19)
DX: N17.9 Acute kidney failure, unspecified (principal); I50.43 Acute on chronic combined systolic (congestive) and diastolic (congestive) heart failure; J18.9 Pneumonia, unspecified organism; I13.2 Hypertensive heart and chronic kidney disease with heart failure and with stage 5 chronic kidney disease, or end stage renal disease; E87.1 Hypo-osmolality and hyponatremia; N18.6 End stage renal disease; E87.6 Hypokalemia; R79.89 Other specified abnormal findings of blood chemistry; Z99.2 Dependence on renal dialysis; E11.22 Type 2 diabetes mellitus with diabetic chronic kidney disease; E66.01 Morbid (severe) obesity due to excess calories; I48.91 Unspecified atrial fibrillation; G89.29 Other chronic pain; I27.20 Pulmonary hypertension, unspecified; M54.9 Dorsalgia, unspecified; I25.10 Atherosclerotic heart disease of native coronary artery without angina pectoris; D63.8 Anemia in other chronic diseases classified elsewhere; Z79.01 Long term (current) use of anticoagulants; Z79.4 Long term (current) use of insulin; Z95.0 Presence of cardiac pacemaker; Z88.0 Allergy status to penicillin; Z68.29 Body mass index [BMI] 29.0-29.9, adult; Z87.891 Personal history of nicotine dependence
CPT/HCPCS: 36415; 71045; 72100; 80048; 80053; 80061; 82550; 82607; 82728; 82962; 83036; 83540; 83550; 83735; 83880; 84100; 84132; 84443; 84484; 85025; 85610; 85730; 87081; 93005; 93971; 96374; G0378; J1642; J1815; J1956; J2405; J3480

== ENCOUNTER 2019-07-23 22:31 | Inpatient (IN) | payer OTHER, MEDICAID ==
[~2019-07-23] VITALS: Ht 165.1 cm; Wt 73.6 kg
[2019-07-23] MEDS ORDERED: ONDANSETRON HCL 4 MG/2 ML VIAL IV ONE (23:45)
[2019-07-23] MEDS ORDERED: MORPHINE SULF INJ 2 MG/ML SYRINGE 1ML IV ONE (23:45)
[2019-07-23 23:55] LABS: Basophils # (auto) 0.1 uL; Monocytes # (auto) 0.6 uL; Red Cell Distribution Width 15.2 % (11.8-14.3)
[2019-07-23 23:57] LABS: Basophils % (auto) 1.1 % (0.0-2.0); Eosinophils # (auto) 0.2 uL; Eosinophils % (auto) 2.5 % (0.0-7.0); Hematocrit 32.9 % (36.0-46.0); Hemoglobin 11.2 g/dL (12.2-16.2); Lymphocytes # (auto) 1.3 uL; Lymphocytes % (auto) 19.7 % (10.0-50.0); Mean Corpuscular Hemoglobin 34.6 pg (28.0-32.0); Mean Corpuscular Hgb Conc. 34.1 g/dL (32.0-36.0); Mean Corpuscular Volume 101.4 fL (80.0-100.0); Monocytes % (auto) 9.3 % (0.0-12.0); Neutrophils # (auto) 4.5 uL; Neutrophils % (auto) 67.4 % (37.0-80.0); Platelet Count (auto) 288 10^3/uL (140-450); Red Blood Cells 3.24 10^6/uL (4.0-5.20); White Blood Cell 6.6 10^3/uL (4.4-10.8)
[2019-07-24] VITALS (7 sets, daily range): BP systolic 133–158; BP diastolic 61–74
[2019-07-24] MEDS ORDERED: IPRATROPIUM BROM 0.5 MG/2.5ML INH SOL NEB ONE
[2019-07-24] MEDS ORDERED: ALBUTEROL SULF 2.5 MG/0.5ML(0.5%) NEB SOLN NEB ONE
[2019-07-24 00:09] LABS: INR 1.23 (0.9-1.15); Partial Thromboplastin Time 33.4 sec (23.64-32.05)
[2019-07-24 00:11] LABS: Albumin 3.5 g/dL (3.4-5.0); BUN/Creatinine Ratio 5.1; Calcium 8.5 mg/dL (8.5-10.1); Potassium 3.5 mmol/L (3.5-5.1)
[2019-07-24 00:15] LABS: Bilirubin, Total 0.5 mg/dL (0.2-1.0); Total Protein 7.6 g/dL (6.4-8.2)
[2019-07-24] MEDS ORDERED: MORPHINE SULFATE 4 MG/ML SYR/VIAL IV ONE (03:00)
[2019-07-24] MEDS ORDERED: DOCUSATE SOD 100 MG CAP PO PRN (04:15)
[2019-07-24] MEDS ORDERED: MORPHINE SULF INJ 2 MG/ML SYRINGE 1ML IV PRN (04:15)
[2019-07-24] MEDS ORDERED: DEXTROSE (50%) 50ML SYRG IV PRN (04:15)
[2019-07-24] MEDS ORDERED: NITROGLYCERIN 0.4 MG SL TAB SL PRN (04:15)
[2019-07-24] MEDS ORDERED: ACETAMINOPHEN 325 MG TAB PO PRN (04:15)
[2019-07-24] MEDS ORDERED: ONDANSETRON HCL 4 MG/2 ML VIAL IV PRN (04:15)
[2019-07-24 05:15] LABS: Urine Bacteria MANY /hpf (None Seen); Urine Blood 1+ /uL (Negative); Urine Specific Gravity 1.014 (1.001-1.035); Urine WBC 49 /hpf (0 - 5); Urine WBC Clumps PRESENT /hpf (None Seen)
[2019-07-24 06:43] LABS: Basophils # (auto) 0 uL; Basophils % (auto) 0.8 % (0.0-2.0); Eosinophils # (auto) 0.2 uL; Lymphocytes # (auto) 1.4 uL; Monocytes # (auto) 0.6 uL
[2019-07-24 06:44] LABS: Eosinophils % (auto) 2.8 % (0.0-7.0); Hematocrit 29.8 % (36.0-46.0); Hemoglobin 10.3 g/dL (12.2-16.2); Lymphocytes % (auto) 23.4 % (10.0-50.0); Mean Corpuscular Hemoglobin 35.1 pg (28.0-32.0); Mean Corpuscular Hgb Conc. 34.6 g/dL (32.0-36.0); Mean Corpuscular Volume 101.6 fL (80.0-100.0); Monocytes % (auto) 9.2 % (0.0-12.0); Neutrophils # (auto) 3.9 uL; Neutrophils % (auto) 63.8 % (37.0-80.0); Nucleated Red Blood Cells % 0.1 %; Platelet Count (auto) 250 10^3/uL (140-450); Red Blood Cells 2.94 10^6/uL (4.0-5.20); Red Cell Distribution Width 15.3 % (11.8-14.3); White Blood Cell 6.1 10^3/uL (4.4-10.8)
[2019-07-24 07:20] LABS: BUN/Creatinine Ratio 5.6; Calcium 8.3 mg/dL (8.5-10.1); Potassium 3.4 mmol/L (3.5-5.1)
[2019-07-24] MEDS: ACCU-CHEK COMFORT CURVE STRIP VI SCH ×4 (08:34→20:00)
[2019-07-24] MEDS: InsuLIN REG 1unit/0.01ml Soln (100units/ml) SC SCH ×4 (08:34→20:00)
--- NOTE | 2019-07-24 09:10 | NUR ---
Telemetry admit from ER FLORENTINOCLEMENCIA admitted to Telemetry unit after SBAR received from JIA Varela. Patient oriented to GUILLERMO HUDDLESTON RN primary RN, unit, room, bed, and unit policies regarding patient care and visiting hours. Patient now on continuous telemetry monitoring, tele box #13 and telemetry reading on arrival to unit is NSR 64bpm. Patient placed on bedside oxygen @ 2L n/c, weighed by bedscale and encouraged to call if they need something.Bed in lowest/locked position, bed rails up x2,call light within reach. Patient instructed on POC. All questions and concerns addressed, patient verbalized understanding.
[2019-07-24] MEDS: cefTRIAXone 1GM/50ML D5W 50 ML IV SCH (10:35)
[2019-07-24] MEDS: MORPHINE SULFATE 4 MG/ML SYR/VIAL IV PRN ×3 (10:36→21:17)
[2019-07-24] MEDS: PANTOPRAZOLE 40 MG TAB PO SCH (10:36)
[2019-07-24] MEDS: APIXABAN 5 MG TAB PO SCH ×2 (10:36→21:31)
[2019-07-24] MEDS: FUROSEMIDE 40 MG/4 ML VIAL IV SCH ×2 (10:36→21:31)
[2019-07-24] MEDS: CARVEDILOL 3.125 MG TAB PO SCH ×2 (10:37→21:31)
[2019-07-24] MEDS: amLODIPine BESYLATE 5 MG TAB PO SCH (10:42)
--- NOTE | 2019-07-24 13:00 | NUR ---
MD ROUNDS DR MAGAÑA AT BEDSIDE DISCUSSING POC WITH PATIENT. ALL QUESTIONS/CONCERNS ANSWERED. NEW ORDERS RECEIVED/CARRIED OUT. WILL CONTINUE TO MONITOR
[2019-07-24] MEDS: AZITHROMYCIN 250 MG TAB PO SCH (14:56)
[2019-07-24] MEDS: HYDROcodone-ACET 5/325MG TAB PO PRN (17:35)
--- NOTE | 2019-07-24 19:10 | NUR ---
Opening Shift Note Assumed care of patient, awake and alert. No S/S of distress/SOB or pain. Instructed on POC and to call for assist PRN, will continue to monitor for changes Q1hr and PRN. Bed placed in lowest position, bed alarm turned and call light within reach.
--- NOTE | 2019-07-24 19:18 | NUR ---
Respiratory note: AT BEDSIDE TO ASSESS FOR PRN TX. TX NOT INDICATED AT THIS TIME. PT MACEDONIAN SPEAKER ONLY. BS ARE CLEAR DIMINISHED T/O , HR 70S, POX 95-97% ON RA. RT NAME AND PAGER ASSIGNMENT WRITTEN ON PTS ROOM BOARD. WILL CONTINUE TO MONITOR.
[2019-07-24] MEDS: FLUTICASONE PROP NASAL SPR 0.05 % (50MCG) 16GM EACHNOSTRI SCH (21:21)
[2019-07-25] VITALS (7 sets, daily range): BP systolic 137–148; BP diastolic 63–80
--- NOTE | 2019-07-25 | NUR ---
INSTRUCTED PATIENT NOT TO EAT OR DRINK AFTER MIDNIGHT FOR THE COMING CARDIOLITE STRESS TEST.
[2019-07-25] MEDS: MORPHINE SULFATE 4 MG/ML SYR/VIAL IV PRN ×2 (03:26→08:09)
[2019-07-25] MEDS: InsuLIN REG 1unit/0.01ml Soln (100units/ml) SC SCH ×6 (04:00→20:00)
--- NOTE | 2019-07-25 04:00 | NUR ---
ASSISTED PATIENT TO REPOSITION TO LEFT SIDE, BUT PATIENT TURN TO RIGHT AGAIN STATING THAT SHE IS NOT COMFORTABLE TO POSITION TO LEFT.
[2019-07-25] MEDS: ACCU-CHEK COMFORT CURVE STRIP VI SCH ×6 (04:10→20:10)
--- NOTE | 2019-07-25 05:00 | NUR ---
IV insertion IV access obtained, via clean sterile technique by inserting 22 gauge catheter at left wrist after first attempt. IV secured properly. No trauma to site. Patient tolerated well.
--- NOTE | 2019-07-25 05:06 | NUR ---
ROUNDS ASSISTED PATIENT TO USE BEDPAN. PATIENT HAD 2 EPISODES OF INCONTINENTS OF URINE THE WHOLE NIGHT.
--- NOTE | 2019-07-25 07:15 | NUR ---
Opening Shift Note Assumed care of patient, awake and alert. No S/S of distress/SOB or pain. Instructed on POC and to call for assist PRN, will continue to monitor for changes Q1hr and PRN. Fall precautions in place per safety protocol.
[2019-07-25] MEDS: FLUTICASONE PROP NASAL SPR 0.05 % (50MCG) 16GM EACHNOSTRI SCH ×2 (09:37→21:55)
[2019-07-25] MEDS: FUROSEMIDE 40 MG/4 ML VIAL IV SCH ×2 (09:37→21:58)
[2019-07-25] MEDS: cefTRIAXone 1GM/50ML D5W 50 ML IV SCH (09:37)
[2019-07-25] MEDS: AZITHROMYCIN 250 MG TAB PO SCH (09:38)
[2019-07-25] MEDS: CARVEDILOL 3.125 MG TAB PO SCH ×2 (09:38→21:59)
[2019-07-25] MEDS: amLODIPine BESYLATE 5 MG TAB PO SCH (09:38)
[2019-07-25] MEDS: PANTOPRAZOLE 40 MG TAB PO SCH (09:38)
[2019-07-25] MEDS: APIXABAN 5 MG TAB PO SCH ×2 (09:38→21:59)
[2019-07-25] MEDS ORDERED: ADENOSINE 65 MG in GIVE UN-DILUTED 0 ML IV STA (09:55)
--- NOTE | 2019-07-25 10:30 | NUR ---
Hospitalist at bedside MD Grey at bedside, aware of patient status. Awaiting stress test. Per MD Grey, if stress test negative, then patient can go home. Will cont to monitor patient.
--- NOTE | 2019-07-25 11:43 | NUR ---
Respiratory note: PT ASSESSED FOR PRN MED NEB TX, NO TX DESIRED AT THIS TIME NOR INDICATED. HR 76 RR 16 SPO2 95% BREATH SOUNDS ARE DIMINISHED T/O. PT AND RN AWARE TO HAVE RT PAGED IF NEEDED.
[2019-07-25] MEDS: HYDROcodone-ACET 5/325MG TAB PO PRN ×2 (15:29→20:07)
--- NOTE | 2019-07-25 19:15 | NUR ---
Care endorsed Endorsed care to night RN Meri. Patient resting in bed, no distress, sob, or pain noted at this time.
--- NOTE | 2019-07-25 19:20 | NUR ---
Opening Shift Note Received report from inna Velazquez RN. Assumed care of patient, awake and alert. No S/S of distress/SOB but continues to c/o pain to generalized back. Will give pain medication as ordered. Instructed on POC and to call for assist PRN, will continue to monitor for changes Q1hr and PRN. Bed placed in lowest position, bed alarm turned and call light within reach.
[2019-07-25] MEDS: ALBUTEROL SULF 2.5 MG/0.5ML(0.5%) NEB SOLN NEB PRN (21:55)
[2019-07-25] MEDS: IPRATROPIUM BROM 0.5 MG/2.5ML INH SOL NEB PRN (21:55)
[2019-07-26] MEDS: ACCU-CHEK COMFORT CURVE STRIP VI SCH ×6 (00:05→19:49)
[2019-07-26] MEDS: HYDROcodone-ACET 5/325MG TAB PO PRN ×5 (00:08→19:50)
[2019-07-26] MEDS: InsuLIN REG 1unit/0.01ml Soln (100units/ml) SC SCH ×6 (04:00→19:48)
[2019-07-26 05:00] VITALS: BP 145/67
[2019-07-26] MEDS ORDERED: SODIUM CHL 0.9% 1000 ML BAG XX ONE (07:00)
--- NOTE | 2019-07-26 08:00 | NUR ---
Patient receiving Dialysis at this time.
[2019-07-26 08:44] VITALS: BP 147/69
[2019-07-26] MEDS: CARVEDILOL 3.125 MG TAB PO SCH ×2 (10:00→21:33)
[2019-07-26] MEDS: APIXABAN 5 MG TAB PO SCH ×2 (10:00→21:33)
[2019-07-26] MEDS: PANTOPRAZOLE 40 MG TAB PO SCH (10:00)
[2019-07-26] MEDS: FUROSEMIDE 40 MG/4 ML VIAL IV SCH ×2 (10:00→21:32)
[2019-07-26] MEDS: FLUTICASONE PROP NASAL SPR 0.05 % (50MCG) 16GM EACHNOSTRI SCH ×2 (10:00→21:31)
[2019-07-26] MEDS: AZITHROMYCIN 250 MG TAB PO SCH (10:00)
[2019-07-26] MEDS: amLODIPine BESYLATE 5 MG TAB PO SCH (10:00)
--- NOTE | 2019-07-26 11:30 | NUR ---
Dialysis done, 3L output, patient tolerated well. VSS stable. Patient now going for VQ Scan. Will cont to monitor patient when she comes back to unit.
[2019-07-26 12:23] VITALS: BP 147/66
--- NOTE | 2019-07-26 12:47 | NUR ---
NUTRITION ASSESSMENT NOTES Please refer to link notes of nutrition screen form filed under the intervention section of the plan of care for further details. Est. Needs: 1500 kcal to 1900 kcal (20-25 kcal/kgBW), 68 gms to 86 gms pro (1.2-1.5 gms/kgIBW: 57 kg d/t ESRD on HD). Will continue to monitor pertinent labs and reassess nutrient need prn Thank you. Addendum: 07/26/19 at [address] Amended: Links added.
--- NOTE | 2019-07-26 13:12 | NUR ---
ASSESSED PT FOR MED NEB PRN BREATHING TX, PT ON RA WITH SPO2 92%, HR 86, RR 20 WITH CLEAR/DIMINISHED BS. NO INDICATION FOR PRN MED NEB TX. WILL CONTINUE TO MONITOR PT.
--- NOTE | 2019-07-26 13:35 | NUR ---
assessment Patient is still out for a procedure. I have checked back twice. I will follow up in the AM. Addendum: 07/26/19 at 1636 by Lenka ALFARO Amended: Links added.
--- NOTE | 2019-07-26 14:00 | NUR ---
Patient back in room. No signs of distress, sob, or pain noted. Patient eating Lunch at this time. Will cont to monitor patient. Will attempt IV when patient is done with lunch.
[2019-07-26 16:28] VITALS: BP 132/63
--- NOTE | 2019-07-26 17:01 | NUR ---
assessment Patient is a 78 year old Citizen Of [place] speaking female. Caroline RO translated. Prior to admission patient lived home with her daughter Jesenia and functioned with assistance. Per patient she will return home to her prior living arrangements post discharge and family will transport her home. Patient is on dialysis with [facility] dialysis T TH SAT at 2am. Patient has a wheelchair for home use. Patients daughter Denise is her caregiver. Patients post discharge needs to be determined prior to discharge. I informed patient she has a right to speak to a addiction social worker regarding all care. I informed patient she has a right to participate in any and all discharge planning. Patient does not have a POA and advanced directive. I have offered patient information on POA and advanced directives. I informed the patient the advantages and benefits of having an Advanced Directive. Patient verbalized understanding and agreed to discharge plan. Addendum: 07/26/19 at 1703 by Lenka ALFARO Amended: Links added.
[2019-07-26] MEDS: cefTRIAXone 1GM/50ML D5W 50 ML IV SCH (17:49)
[2019-07-26] MEDS: ALBUTEROL SULF 2.5 MG/0.5ML(0.5%) NEB SOLN NEB PRN (18:28)
[2019-07-26] MEDS: IPRATROPIUM BROM 0.5 MG/2.5ML INH SOL NEB PRN (18:28)
--- NOTE | 2019-07-26 18:30 | NUR ---
RT NOTE PT WAS SEEN BY RT FOR PRN HHN TX. PT TOLERATES WELL VIA MASK. NO ADVERSE REACTION NOTED. CONT ORDERED Addendum: 07/26/19 at 1858 by Odalys Ang RT Amended: Links added.
--- NOTE | 2019-07-26 19:15 | NUR ---
Opening Shift Note Received report from inna Velazquez RN. Assumed care of patient, awake and alert. No S/S of distress/SOB but continues to c/o pain to generalized back . Will give pain medication as ordered. Instructed on POC and to call for assist PRN, will continue to monitor for changes Q1hr and PRN. Bed placed in lowest position, bed alarm turned and call light within reach.
--- NOTE | 2019-07-26 19:24 | NUR ---
Care endorsed Endorsed care to night RN Meri. Patient resting in bed, no distress, sob, or pain noted at this time.
[2019-07-26 20:00] VITALS: BP 121/66
[2019-07-26 21:47] VITALS: BP 121/56
[2019-07-27] MEDS: ACCU-CHEK COMFORT CURVE STRIP VI SCH ×7 (00:06→23:53)
[2019-07-27] MEDS: HYDROcodone-ACET 5/325MG TAB PO PRN ×5 (00:07→21:51)
[2019-07-27] MEDS: InsuLIN REG 1unit/0.01ml Soln (100units/ml) SC SCH ×7 (03:49→23:53)
[2019-07-27 05:30] VITALS: BP 148/68
--- NOTE | 2019-07-27 06:09 | NUR ---
ROUNDS PATIENT IS ALERT AND ORIENTED, NO DISTRESS NOTED. PATIENT RECEIVED PAIN MEDICATION AT 0400. ENCOURAGED PATIENT TO GET UP TO USE COMMODE, BUT PATIENT INSISTED ON BEDPAN. WILL MONITOR.
[2019-07-27 08:00] VITALS: BP 151/71
[2019-07-27] MEDS ORDERED: ADENOSINE 60 MG in GIVE UN-DILUTED 0 ML IV STA (08:42)
[2019-07-27 09:00] VITALS: BP 151/71
[2019-07-27] MEDS: CARVEDILOL 3.125 MG TAB PO SCH ×2 (10:00→21:50)
--- NOTE | 2019-07-27 10:30 | NUR ---
Patient off unit for stress test. Will cont to monitor when patient returns. No distress noted at time of departure.
[2019-07-27] MEDS: cefTRIAXone 1GM/50ML D5W 50 ML IV SCH (11:06)
[2019-07-27] MEDS: FUROSEMIDE 40 MG/4 ML VIAL IV SCH ×2 (11:07→21:50)
[2019-07-27] MEDS: amLODIPine BESYLATE 5 MG TAB PO SCH (11:08)
[2019-07-27] MEDS: AZITHROMYCIN 250 MG TAB PO SCH (11:11)
[2019-07-27] MEDS: PANTOPRAZOLE 40 MG TAB PO SCH (11:12)
[2019-07-27] MEDS: FLUTICASONE PROP NASAL SPR 0.05 % (50MCG) 16GM EACHNOSTRI SCH ×2 (11:13→21:49)
[2019-07-27] MEDS: APIXABAN 5 MG TAB PO SCH ×2 (11:13→21:50)
--- NOTE | 2019-07-27 11:16 | NUR ---
RT NOTE: WENT TO PTS ROOM TO ASSESS FOR PRN BREATHING TX, PT WAS IN WHEELCHAIR FOR PROCEDURE. HR 80, SPO2 97% ON 3L NC, NO S/S OF SOB. NO INDICATION FOR TX AT THIS TIME. WILL CONTINUE TO MONITOR PT.
[2019-07-27 15:11] VITALS: BP 148/68
[2019-07-27 17:00] VITALS: BP 127/65
[2019-07-27 22:00] VITALS: BP 142/63
--- NOTE | 2019-07-28 03:15 | NUR ---
Opening Shift Note Assumed care of patient, patient asleep verbally awake and alert. No S/S of distress/SOB or pain. Instructed on POC and to call for assist PRN, will continue to monitor for changes Q1hr and PRN.
--- NOTE | 2019-07-28 03:33 | NUR ---
Care endorsed Endorsed care to night JIA Reddy. Patient resting in bed, no signs of distress/sob noted at this time.
[2019-07-28] MEDS: HYDROcodone-ACET 5/325MG TAB PO PRN ×3 (03:38→13:40)
[2019-07-28] MEDS: InsuLIN REG 1unit/0.01ml Soln (100units/ml) SC SCH ×3 (03:42→11:22)
[2019-07-28] MEDS: ACCU-CHEK COMFORT CURVE STRIP VI SCH ×3 (03:42→11:23)
[2019-07-28 05:00] VITALS: BP 141/71
--- NOTE | 2019-07-28 05:38 | NUR ---
RT NOTE: WENT TO PTS ROOM TO ASSESS FOR PRN BREATHING TX, PT SITTING UP IN BED NO S/S OF SOB. HR 74, RR 16, SPO2 96% ON 2L NC. NO INDICATION FOR TX, WILL CONTINUE TO MONITOR PT.
--- NOTE | 2019-07-28 08:10 | NUR ---
dialysis called stated dialysis will be around 1100
[2019-07-28] MEDS: cefTRIAXone 1GM/50ML D5W 50 ML IV SCH (08:34)
[2019-07-28] MEDS: APIXABAN 5 MG TAB PO SCH (08:36)
[2019-07-28] MEDS: FLUTICASONE PROP NASAL SPR 0.05 % (50MCG) 16GM EACHNOSTRI SCH (08:36)
[2019-07-28] MEDS: PANTOPRAZOLE 40 MG TAB PO SCH (08:36)
[2019-07-28] MEDS: AZITHROMYCIN 250 MG TAB PO SCH (08:36)
[2019-07-28] MEDS: amLODIPine BESYLATE 5 MG TAB PO SCH (08:37)
[2019-07-28] MEDS: FUROSEMIDE 40 MG/4 ML VIAL IV SCH (08:37)
[2019-07-28] MEDS: CARVEDILOL 3.125 MG TAB PO SCH (08:37)
[2019-07-28 09:00] VITALS: BP 160/72
[2019-07-28] MEDS ORDERED: SODIUM CHL 0.9% 1000 ML BAG XX ONE (11:15)
[2019-07-28 13:00] VITALS: BP 149/72
--- NOTE | 2019-07-28 13:28 | NUR ---
notified nuclear medicine regarding pt finishing dialysis at 2pm, md sierra rounded on patient, per md pt is to be discharged if the vq scan is negative
--- NOTE | 2019-07-28 14:01 | NUR ---
daughter maciel notified of pt being discharged stated he will picking tech patient around 1600
--- NOTE | 2019-07-28 14:10 | NUR ---
dialysis completed on patient taken 2.5 liters out, bp 168/80 hr 76 r 118 97% ra
[2019-07-28 14:17] VITALS: BP 160/72
--- NOTE | 2019-07-28 16:35 | NUR ---
called family to inquire when they will be here to pick pack worker the patient
[2019-07-28 17:00] VITALS: BP 142/63
--- NOTE | 2019-07-28 17:13 | NUR ---
pt left with family to home wheel chair down to lobby and ambulated to the car peripheral iv removed tele box sent back to tele room no respiratory distress noted
== END 2019-07-28 17:12 | disposition home or self-care (01) | DRG 291 ==
LOC: EDBD 22:31 → ER 22:33 → TELE 22:34 → TELE-EAST 07-24 09:11
PROVIDERS: ADMIT Hospitalist; ATTEND Internal Medicine Nephrology
PROC: 02H633Z Insertion of Infusion Device into Right Atrium, Percutaneous Approach (ICD-10-PCS; principal; 2019-07-23)
PROC: 5A1D70Z Performance of Urinary Filtration, Intermittent, Less than 6 Hours Per Day (ICD-10-PCS; 2019-07-26)
PROC: 5A1D70Z Performance of Urinary Filtration, Intermittent, Less than 6 Hours Per Day (ICD-10-PCS; 2019-07-28)
DX: I13.2 Hypertensive heart and chronic kidney disease with heart failure and with stage 5 chronic kidney disease, or end stage renal disease (principal); I50.41 Acute combined systolic (congestive) and diastolic (congestive) heart failure; N18.6 End stage renal disease; J96.01 Acute respiratory failure with hypoxia; J81.1 Chronic pulmonary edema; J90 Pleural effusion, not elsewhere classified; E11.22 Type 2 diabetes mellitus with diabetic chronic kidney disease; M54.9 Dorsalgia, unspecified; Z96.89 Presence of other specified functional implants; R07.89 Other chest pain; E87.6 Hypokalemia; D63.8 Anemia in other chronic diseases classified elsewhere; J45.909 Unspecified asthma, uncomplicated; Z88.0 Allergy status to penicillin; Z79.899 Other long term (current) drug therapy; Z99.2 Dependence on renal dialysis; Z91.19 Patient's noncompliance with other medical treatment and regimen; Z80.0 Family history of malignant neoplasm of digestive organs; Z79.4 Long term (current) use of insulin
CPT/HCPCS: 36415; 71045; 78452; 80048; 80053; 81001; 82962; 83036; 83605; 83880; 84484; 85025; 85379; 85610; 85730; 87040; 87081; 90935; 93005; 93017; 93971; 94640; 96374; 96375; 96376; G0378; J0153; J0696; J1642; J2405

== ENCOUNTER 2019-07-31 22:34 | Emergency (ER) | payer OTHER, MEDICAID ==
[~2019-07-31] VITALS: Ht 165.1 cm; Wt 83.9 kg
[2019-07-31 23:13] LABS: Eosinophils # (auto) 0.2 uL; Lymphocytes # (auto) 1.1 uL
[2019-07-31 23:14] LABS: Basophils # (auto) 0 uL; Basophils % (auto) 0.2 % (0.0-2.0); Eosinophils % (auto) 2.9 % (0.0-7.0); Hematocrit 32.5 % (36.0-46.0); Hemoglobin 11.3 g/dL (12.2-16.2); Lymphocytes % (auto) 14.5 % (10.0-50.0); Mean Corpuscular Hgb Conc. 34.7 g/dL (32.0-36.0); Mean Corpuscular Volume 100.8 fL (80.0-100.0); Monocytes # (auto) 0.6 uL; Monocytes % (auto) 7.4 % (0.0-12.0); Neutrophils # (auto) 5.8 uL; Platelet Count (auto) 300 10^3/uL (140-450); Red Blood Cells 3.23 10^6/uL (4.0-5.20); Red Cell Distribution Width 15.2 % (11.8-14.3); White Blood Cell 7.7 10^3/uL (4.4-10.8)
[2019-07-31 23:30] LABS: Albumin 3.3 g/dL (3.4-5.0); BUN/Creatinine Ratio 5.9; Calcium 8.2 mg/dL (8.5-10.1); Magnesium 1.8 mg/dL (1.6-2.6); Potassium 3.7 mmol/L (3.5-5.1)
[2019-07-31 23:33] LABS: Bilirubin, Total 0.4 mg/dL (0.2-1.0); Total Protein 7.4 g/dL (6.4-8.2)
[2019-08-01] MEDS ORDERED: cloNIDine HCL 0.1 MG TAB PO ONE (01:45)
[2019-08-01] MEDS ORDERED: FUROSEMIDE 40 MG/4 ML VIAL IV ONE (02:00)
[2019-08-01] MEDS ORDERED: ONDANSETRON ODT 4 MG TAB PO ONE (03:45)
[2019-08-01] MEDS ORDERED: HYDROcodone-ACET 5/325MG TAB PO ONE (03:45)
[2019-08-01 04:00] VITALS: BP 176/78
== END 2019-08-01 04:16 | disposition home or self-care (01) ==
LOC: EDBD 22:34 → ER 22:35
DX: I20.9 Angina pectoris, unspecified (principal); G89.4 Chronic pain syndrome; I16.0 Hypertensive urgency; J45.909 Unspecified asthma, uncomplicated; I12.0 Hypertensive chronic kidney disease with stage 5 chronic kidney disease or end stage renal disease; E11.22 Type 2 diabetes mellitus with diabetic chronic kidney disease; N18.6 End stage renal disease; Z76.0 Encounter for issue of repeat prescription; Z88.0 Allergy status to penicillin
CPT/HCPCS: 36415; 80053; 83735; 83880; 84484; 85025; 93005; 99284; Q0162

== ENCOUNTER 2019-08-22 04:29 | Inpatient (IN) | payer OTHER, MEDICAID ==
[~2019-08-22] VITALS: Ht 152.4 cm; Wt 74.8 kg
[2019-08-22] MEDS ORDERED: SODIUM CHLORIDE 0.9% 1,000 ML IV ONE (04:58)
[2019-08-22] MEDS ORDERED: MORPHINE SULFATE 4 MG/ML SYR/VIAL IV ONE (05:00)
[2019-08-22] MEDS ORDERED: ONDANSETRON HCL 4 MG/2 ML VIAL IV ONE (05:00)
[2019-08-22 06:03] LABS: Basophils # (auto) 0.1 uL; Eosinophils # (auto) 0.1 uL; Nucleated Red Blood Cells % 0.1 %
[2019-08-22 06:06] LABS: Basophils % (auto) 0.7 % (0.0-2.0); Hematocrit 32.1 % (36.0-46.0); Mean Corpuscular Hemoglobin 33.9 pg (28.0-32.0); Mean Corpuscular Hgb Conc. 34.2 g/dL (32.0-36.0); Mean Corpuscular Volume 99.2 fL (80.0-100.0); Monocytes # (auto) 0.5 uL; Monocytes % (auto) 4.7 % (0.0-12.0); Neutrophils # (auto) 9.3 uL; Neutrophils % (auto) 84.6 % (37.0-80.0); Platelet Count (auto) 426 10^3/uL (140-450); Red Blood Cells 3.23 10^6/uL (4.0-5.20); Red Cell Distribution Width 15.9 % (11.8-14.3)
[2019-08-22 06:16] LABS: INR 1.17 (0.9-1.15); Partial Thromboplastin Time 26.2 sec (23.64-32.05)
[2019-08-22 08:19] LABS: Urine Bacteria FEW /hpf (None Seen); Urine Blood 1+ /uL (Negative); Urine Specific Gravity 1.011 (1.001-1.035); Urine WBC 37 /hpf (0 - 5)
[2019-08-22 08:45] LABS: Calcium 7.9 mg/dL (8.5-10.1); Potassium 3.4 mmol/L (3.5-5.1)
[2019-08-22 08:48] LABS: Bilirubin, Total 0.4 mg/dL (0.2-1.0); Total Protein 6.9 g/dL (6.4-8.2)
[2019-08-22] MEDS ORDERED: hydrALAZINE HCL 20 MG/ML VL IV PRN (10:15)
[2019-08-22] MEDS ORDERED: NITROGLYCERIN 0.4 MG SL TAB SL PRN (10:15)
[2019-08-22] MEDS ORDERED: MORPHINE SULF INJ 2 MG/ML SYRINGE 1ML IV PRN (10:15)
[2019-08-22] MEDS: MORPHINE SULF INJ 2 MG/ML SYRINGE 1ML IV PRN ×2 (10:40→16:31)
[2019-08-22] MEDS: ONDANSETRON HCL 4 MG/2 ML VIAL IV PRN (10:46)
[2019-08-22] MEDS: HYDROcodone-ACET 5/325MG TAB PO PRN (14:31)
[2019-08-22] MEDS ORDERED: SODIUM CHL 0.9% 1000 ML BAG XX ONE (15:45)
[2019-08-22 17:17] VITALS: BP 153/73
[2019-08-22 17:23] VITALS: BP 153/82
[2019-08-22 22:00] VITALS: BP 167/84
--- NOTE | 2019-08-22 22:56 | NUR ---
dialysis nurse reports completion of treatment. 2.5L removed. pt is resting with eyes closed, breathing even and unlabored. pt call light in reach, bed locked, low and 2x rails up. this nurse to round q1hr and prn. no distress noted.
[2019-08-22] MEDS: CARVEDILOL 3.125 MG TAB PO SCH (23:00)
--- NOTE | 2019-08-23 00:33 | NUR ---
pt refused to have IV started at this time. will attempt at later time. no distress noted or expressed. call light in reach.
[2019-08-23] MEDS: MORPHINE SULF INJ 2 MG/ML SYRINGE 1ML IV PRN ×3 (01:06→10:00)
[2019-08-23] MEDS: CARVEDILOL 3.125 MG TAB PO SCH ×3 (01:06→17:52)
[2019-08-23 05:13] VITALS: BP 147/71
[2019-08-23 06:10] LABS: Basophils # (auto) 0 uL; Basophils % (auto) 0.2 % (0.0-2.0); Eosinophils # (auto) 0 uL; Hematocrit 29.7 % (36.0-46.0); Hemoglobin 9.9 g/dL (12.2-16.2); Lymphocytes # (auto) 0.4 uL; Lymphocytes % (auto) 2.1 % (10.0-50.0); Mean Corpuscular Hgb Conc. 33.4 g/dL (32.0-36.0); Mean Corpuscular Volume 98.9 fL (80.0-100.0); Monocytes # (auto) 0.5 uL; Monocytes % (auto) 2.3 % (0.0-12.0); Neutrophils # (auto) 19.6 uL; Neutrophils % (auto) 95.4 % (37.0-80.0); Platelet Count (auto) 291 10^3/uL (140-450); Red Blood Cells 3.01 10^6/uL (4.0-5.20); Red Cell Distribution Width 15.8 % (11.8-14.3); White Blood Cell 20.6 10^3/uL (4.4-10.8)
[2019-08-23 06:27] LABS: INR 1.28 (0.9-1.15); Partial Thromboplastin Time 34.5 sec (23.64-32.05)
[2019-08-23 06:40] LABS: Potassium 3.7 mmol/L (3.5-5.1)
[2019-08-23 06:45] LABS: BUN/Creatinine Ratio 3.5
--- NOTE | 2019-08-23 08:00 | NUR ---
Received pt resting in bed, call light within reach, pt reports pain on back after with movement 02/04, will continue to monitor pt.
[2019-08-23] MEDS: ONDANSETRON HCL 4 MG/2 ML VIAL IV PRN ×2 (08:27→17:20)
[2019-08-23 08:58] VITALS: BP 149/63
[2019-08-23] MEDS: cefTRIAXone 1GM/50ML D5W 50 ML IV SCH (09:26)
[2019-08-23] MEDS: PANTOPRAZOLE 40 MG TAB PO SCH (09:27)
[2019-08-23] MEDS: FUROSEMIDE 40 MG TAB PO SCH (09:42)
[2019-08-23] MEDS: amLODIPine BESYLATE 5 MG TAB PO SCH (09:42)
--- NOTE | 2019-08-23 11:25 | NUR ---
Dr. Grey at bed side to see pt, doctor informed that thoracentesis will be done today and that pt has not been checked for blood sugar, received orders to call ultrasound to re-schedule the thoracentesis for tomorrow due to pt possibly receiving the Eliquis yesterday.
[2019-08-23] MEDS: ACETAMINOPHEN 500 MG TAB PO PRN (11:51)
[2019-08-23 13:00] VITALS: BP 141/70
[2019-08-23 17:03] VITALS: BP 133/66
[2019-08-23] MEDS: HYDROcodone-ACET 5/325MG TAB PO PRN (18:06)
[2019-08-23 22:00] VITALS: BP 120/60
[2019-08-24] MEDS: HYDROcodone-ACET 5/325MG TAB PO PRN ×3 (00:07→22:39)
[2019-08-24 05:00] VITALS: BP 137/60
[2019-08-24] MEDS: ACETAMINOPHEN 500 MG TAB PO PRN ×2 (05:12→14:44)
--- NOTE | 2019-08-24 05:16 | NUR ---
paged hospitalist for pt complaint of itching.
[2019-08-24] MEDS ORDERED: diphenhdrAMINE HCL 25 MG CAP PO ONE (06:30)
--- NOTE | 2019-08-24 07:55 | NUR ---
JIA Hathaway called asking when was the last time patient had Eliquis, blood thinner.
--- NOTE | 2019-08-24 07:58 | NUR ---
Called JIA Hathaway that JEREMY Rodriguez interpreted for patient in Serbian that patient had Eliquis last Wednesday, 2019.
--- NOTE | 2019-08-24 08:00 | NUR ---
Assisted the patient to bedside commode.
[2019-08-24] MEDS: CARVEDILOL 3.125 MG TAB PO SCH ×2 (08:14→17:55)
--- NOTE | 2019-08-24 08:15 | NUR ---
Giovanna from Radiology called that patient will be picked up for Thoracentesis. Patient can have the Coreg with sips of water. Giovanna made aware patient had a fall at home, patient needs moderate assist getting up.
--- NOTE | 2019-08-24 08:50 | NUR ---
PT IN ULTRASOUND FOR A THORACENTESIS BY DR HICKMAN. VSS 150/[id number]%. 0900: FINISHED WITH PROCEDURE VS 152/84-79-16-93%. PT DELTA WELL. 300 ML OF FLUID REMOVED. NOT SENT TO LAB PER DR MAGAÑA
[2019-08-24 09:00] VITALS: BP 137/66
--- NOTE | 2019-08-24 09:00 | NUR ---
Patient off unit for Thoracentesis.
--- NOTE | 2019-08-24 10:00 | NUR ---
Patient back to room post Thoracentesis. Daughter at bedside.
--- NOTE | 2019-08-24 10:10 | NUR ---
Called exchange floor manager Mag (ext # [phone]). Mag said Thoracentesis done, about 300 ml off, patient can have the medications as ordered.
[2019-08-24] MEDS: amLODIPine BESYLATE 5 MG TAB PO SCH (10:22)
[2019-08-24] MEDS: FUROSEMIDE 40 MG TAB PO SCH (10:23)
[2019-08-24] MEDS: PANTOPRAZOLE 40 MG TAB PO SCH (10:23)
[2019-08-24] MEDS: cefTRIAXone 1GM/50ML D5W 50 ML IV SCH (10:23)
--- NOTE | 2019-08-24 10:56 | NUR ---
Dr. Grey at bedside. explained to patient and daughter that patient had Thoracentesis, recommends patient to go to a [facility] facility possibly on Wednesday. Daughter confirmed patient fell at home, left side affected. Dr. Grey ordered left foot/ankle and left knee multiple views x ray, Podiatry Consult with Amanda Saleh
--- NOTE | 2019-08-24 11:32 | NUR ---
Dr. Blanco not available today for Podiatry Consult as per Unit Sec. Concepcion. Dr. Sullivan to see the patient tomorrow, Wednesday.
[2019-08-24 13:00] VITALS: BP 111/54
--- NOTE | 2019-08-24 13:40 | NUR ---
Called [facility]. Dr. Bueno asked the latest Potassium level. K = 3.7 (08/23/2019). said patient will have hemodialysis tomorrow, Wednesday.
--- NOTE | 2019-08-24 14:44 | NUR ---
Tylenol PO given for pain.
--- NOTE | 2019-08-24 15:49 | NUR ---
assessment Patient is a 78 year old Congolese speaking female. Nida patients granddaughter translated. Prior to admission patient lived home with her daughter Jesenia and functioned with assistance. Patient is on dialysis with [facility] T TH SAT at 4am. Patient has a wheelchair and fww for home use. Patients daughter Denise is her caregiver. Patient has a consult for SNF. Per Radha patient will be Medicare on the 26 of August. I will follow up with [facility] on insurance and make sure they know she will be coming under Medicare. I informed patient she has a right to speak to a director social regarding all care. I informed patient she has a right to participate in any and all discharge planning. Patient does not have a POA and advanced directive. I have offered patient information on POA and advanced directives. I informed the patient the advantages and benefits of having an Advanced Directive. Patient verbalized understanding and agreed to discharge plan. Addendum: 08/24/19 at 1553 by Lenka ALFARO Amended: Links added.
--- NOTE | 2019-08-24 16:04 | NUR ---
Patient stated she has stomach pain. [place] 5/325 PO given for pain.
[2019-08-24 17:00] VITALS: BP 108/53
--- NOTE | 2019-08-24 17:08 | NUR ---
Patient removed her nasal cannula, keeps picking her nose. JEREMY Rodriguez interpreted in Taiwanese that patient said the O2 via nasal cannula does not help her breathing, stated the last time she was here she was put on a mask to breath better.
--- NOTE | 2019-08-24 17:10 | NUR ---
Called Dr. Grey that patient is itching and asking for breathing treatment. MD ordered Pepcid Inj 40 mg once, Benadryl Cap 50 mg Q8 PRN for itching, breathing treatment Q2 PRN for shortness of breath.
--- NOTE | 2019-08-24 17:14 | NUR ---
Called Pharmacy to verify the new medication orders. Pharmacist said the breathing treatment Q2 PRN may be too much.
[2019-08-24] MEDS ORDERED: FAMOTIDINE (10MG/ML) 2ML VL IV ONE (17:15)
[2019-08-24] MEDS ORDERED: ALBUTEROL SULF 2.5 MG/0.5ML(0.5%) NEB SOLN NEB PRN ×2 (17:15→17:30)
--- NOTE | 2019-08-24 17:35 | NUR ---
Patient eating dinner being assisted by family.
[2019-08-24] MEDS: diphenhdrAMINE HCL 25 MG CAP PO PRN (17:39)
--- NOTE | 2019-08-24 17:39 | NUR ---
Benadryl Cap 50 mg PRN given for itching.
--- NOTE | 2019-08-24 17:45 | NUR ---
Paged the Respiratory Therapist for PRN breathing treatment.
--- NOTE | 2019-08-24 18:00 | NUR ---
Patient has not received breathing treatment yet.
--- NOTE | 2019-08-24 18:02 | NUR ---
Paged the Respiratory Therapist again for patient's breathing treatment.
[2019-08-24] MEDS: ONDANSETRON HCL 4 MG/2 ML VIAL IV PRN (18:51)
--- NOTE | 2019-08-24 18:51 | NUR ---
Patient is nauseous. With emesis bag. Zofran Inj given for nausea/vomiting.
--- NOTE | 2019-08-24 19:37 | NUR ---
Opening Shift Note Received report and assumed care of patient. Patient is awake and alert. No signs or symptoms of distress noted. Instructed patient on plan of care and to call for assistance as needed. Will continue to monitor.
--- NOTE | 2019-08-24 20:10 | NUR ---
IV removal/insertion 20g IV to the Right wrist leaking. Discontinued IV with clean technique, catheter tip fully intact. Pressure dressing applied to site. NOTE: Inserted 22g IV to the left forearm. Patient tolerated procedure well.
[2019-08-24 21:15] VITALS: BP 108/53
[2019-08-24 22:00] VITALS: BP 110/61
[2019-08-25] MEDS: diphenhdrAMINE HCL 25 MG CAP PO PRN (02:08)
[2019-08-25] MEDS: ACETAMINOPHEN 500 MG TAB PO PRN (02:08)
[2019-08-25 04:33] VITALS: BP 134/80
[2019-08-25] MEDS ORDERED: SODIUM CHL 0.9% 1000 ML BAG XX ONE (07:00)
[2019-08-25] MEDS: CARVEDILOL 3.125 MG TAB PO SCH ×2 (08:00→17:33)
--- NOTE | 2019-08-25 08:04 | NUR ---
PT ASSESSED FOR PRN HHN TX. PT IS ON 2LNC, SPO2 93%, HR 78, RR 16. NO S/S OF RESPIRATORY DISTRESS. HHN TX NOT INDICATED AT THIS TIME. WILL CONTINUE TO MONITOR.
[2019-08-25 08:05] VITALS: BP 154/69
[2019-08-25 09:00] VITALS: BP 154/69
[2019-08-25] MEDS: FUROSEMIDE 40 MG TAB PO SCH (10:35)
[2019-08-25] MEDS: cefTRIAXone 1GM/50ML D5W 50 ML IV SCH (10:35)
[2019-08-25] MEDS: amLODIPine BESYLATE 5 MG TAB PO SCH (10:36)
[2019-08-25] MEDS: PANTOPRAZOLE 40 MG TAB PO SCH (10:37)
[2019-08-25] MEDS: HYDROcodone-ACET 5/325MG TAB PO PRN ×2 (11:20→17:34)
[2019-08-25 12:54] VITALS: BP 144/61
--- NOTE | 2019-08-25 15:04 | NUR ---
D/C Planning Per SS consult for SNF Placement. Per SW II Lenka patient requested [facility]. Per II Lenka patient will have Medicare on August 27 2019. Faxed orders to [facility]. Per Gilda with [facility] Ph:) she will reviewed on Wednesday.
[2019-08-25 16:37] VITALS: BP 135/62
--- NOTE | 2019-08-25 17:20 | NUR ---
Patient is c/o feeling nauseous. Patient requesting for nausea medication. Will medicate as prescribed my MD.
[2019-08-25] MEDS: DOCUSATE SOD 100 MG CAP PO PRN (17:34)
[2019-08-25] MEDS: ONDANSETRON HCL 4 MG/2 ML VIAL IV PRN (17:36)
--- NOTE | 2019-08-25 19:24 | NUR ---
Opening Shift Note Received report and assumed care of patient. Patient is awake and alert. No signs or symptoms of distress noted, Patient currently denies pain. Instructed patient on plan of care and to call for assistance as needed. Will continue to monitor.
[2019-08-25] MEDS ORDERED: EPOETIN ALFA 10,000 UNIT/1 ML VIAL SC ONE (21:00)
[2019-08-25 22:00] VITALS: BP 131/67
[2019-08-26] MEDS: HYDROcodone-ACET 5/325MG TAB PO PRN ×3 (00:31→18:47)
[2019-08-26] MEDS: ONDANSETRON HCL 4 MG/2 ML VIAL IV PRN ×3 (01:59→15:40)
--- NOTE | 2019-08-26 02:32 | NUR ---
IV removal/insertion 22g IV to the Left forearm leaking. Discontinued IV with clean technique, catheter tip fully intact. Pressure dressing applied to site. NOTE: Inserted 22g IV to the left forearm. Patient tolerated procedure well.
[2019-08-26 05:00] VITALS: BP 137/67
--- NOTE | 2019-08-26 07:30 | NUR ---
Opening Shift Note Assumed care of patient, awake and alert. No S/S of distress/SOB or pain. Instructed on POC and to call for assist PRN, will continue to monitor for changes Q1hr and PRN. Bed in low and locked position, rails up x2, no-slip socks on. Patient requesting socks to be removed at this time, bed alarm placed on for fall precautions. Patient complaining of pain to left hip, will medicate as ordered and continue to monitor.
[2019-08-26 09:00] VITALS: BP 132/69
--- NOTE | 2019-08-26 09:35 | NUR ---
Respiratory note: PT ASSESSED FOR PRN MED NEB TX, NO TX INDICATED AT THIS TIME. PT FOUND TO BE SITTING IN CHAIR WITH NO DISTRESS NOTED. HR 74 RR 16 SPO2 98% ON 1L N/C, BREATH SOUNDS ARE DIMINISHED T/O. RN AWARE TO HAVE RT PAGED IF NEEDED.
[2019-08-26] MEDS: FUROSEMIDE 40 MG TAB PO SCH (09:50)
[2019-08-26] MEDS: PANTOPRAZOLE 40 MG TAB PO SCH (09:50)
[2019-08-26] MEDS: amLODIPine BESYLATE 5 MG TAB PO SCH (09:50)
[2019-08-26] MEDS: cefTRIAXone 1GM/50ML D5W 50 ML IV SCH (09:51)
[2019-08-26] MEDS: CARVEDILOL 3.125 MG TAB PO SCH ×2 (09:51→18:46)
[2019-08-26] MEDS: diphenhdrAMINE HCL 25 MG CAP PO PRN ×2 (10:00→20:45)
--- NOTE | 2019-08-26 10:42 | NUR ---
DR JEREZ AT BEDSIDE FAMILY AT BEDSIDE ABLE TO TRANSLATE FOR PATIENT REGARDING PLAN OF CARE, PER FAMILY THEY ARE AMENABLE TO [facility] IF DR MAGAÑA IS THE ACCEPTING PHYSICIAN HOWEVER THE PATIENT HAS BEEN IN A RETIREMENT AFTER A PREVIOUS ADMISSION AND EXPRESSED DEPRESSION AND ELEVATED BLOOD PRESSURE DUE TO STRESS IN THE ENVIRONMENT. NO ORDERS FOR DISCHARGE TODAY PER DR JEREZ, AWAITING PATIENTS NEW INSURANCE TO BEGIN TOMORROW AT WHICH TIME FAMILY WILL AGAIN DISCUSS [facility] HOME [facility]YSICAL THERAPY. NO NEW ORDERS, WILL CONTINUE TO MONITOR.
[2019-08-26 13:00] VITALS: BP 128/59
[2019-08-26 17:00] VITALS: BP 139/69
--- NOTE | 2019-08-26 20:00 | NUR ---
Opening Shift Note Assumed care of patient, awake and alert. No S/S of distress/SOB or pain. Instructed on POC and to call for assist PRN, will continue to monitor for changes Q1hr and PRN.
[2019-08-26] MEDS: DOCUSATE SOD 100 MG CAP PO PRN (21:40)
[2019-08-26 22:00] VITALS: BP 129/65
--- NOTE | 2019-08-26 23:35 | NUR ---
EKG done for chest pain, with normal result.
[2019-08-27] MEDS: HYDROcodone-ACET 5/325MG TAB PO PRN (04:39)
[2019-08-27 05:00] VITALS: BP 148/75
--- NOTE | 2019-08-27 07:00 | NUR ---
Report given to Shelley Espinal, patient is resting no distress.
--- NOTE | 2019-08-27 07:30 | NUR ---
Opening Shift Note Assumed care of patient, awake and alert. No S/S of distress/SOB or pain. Instructed on POC and to call for assist PRN, will continue to monitor for changes Q1hr and PRN. Bed in low and locked position, rails up x2, no-slip socks on.
[2019-08-27 08:00] VITALS: BP 155/77
[2019-08-27] MEDS: ACETAMINOPHEN 500 MG TAB PO PRN (08:38)
[2019-08-27] MEDS: CARVEDILOL 3.125 MG TAB PO SCH ×2 (08:38→18:26)
[2019-08-27] MEDS: FUROSEMIDE 40 MG TAB PO SCH (10:00)
[2019-08-27] MEDS: MORPHINE SULF INJ 2 MG/ML SYRINGE 1ML IV PRN ×3 (10:05→21:47)
[2019-08-27] MEDS: ONDANSETRON HCL 4 MG/2 ML VIAL IV PRN ×3 (10:05→21:53)
[2019-08-27] MEDS: cefTRIAXone 1GM/50ML D5W 50 ML IV SCH (10:06)
[2019-08-27] MEDS: PANTOPRAZOLE 40 MG TAB PO SCH (10:06)
[2019-08-27] MEDS: amLODIPine BESYLATE 5 MG TAB PO SCH (10:06)
--- NOTE | 2019-08-27 10:42 | NUR ---
PAGE TO DR Yemi JEREZ DR ON UNIT AT THIS TIME, PATIENT COMPLAINING OF LEFT LEG PAIN UNRELIEVED BY PO PAIN MEDICATION, PATIENT NOW VERBALIZING IT FEELS LIKE CRAMPING PAIN. NEW ORDERS ADDED FOR ULTRASOUND VENOUS AND ARTERIAL TO RULE OUT VTE, WELL IV PAIN MEDICATION, WILL CARRY OUT ORDERS.
[2019-08-27 12:00] VITALS: BP 146/68
--- NOTE | 2019-08-27 13:17 | NUR ---
PT Patient is having an ultrasound during PT visit. Addendum: 08/27/19 at 1317 by MARION PARR PTT Amended: Links added.
[2019-08-27 16:45] VITALS: BP 140/64
[2019-08-27 22:00] VITALS: BP 146/62
[2019-08-28] MEDS: HYDROcodone-ACET 5/325MG TAB PO PRN ×2 (02:54→15:57)
[2019-08-28 05:30] VITALS: BP 155/72
[2019-08-28 06:25] LABS: Basophils # (auto) 0 uL (0-0.2); Basophils % (auto) 0.9 % (0.0-2.0); Eosinophils # (auto) 0.2 uL (0-0.8); Eosinophils % (auto) 3.7 % (0.0-7.0); Hematocrit 30.3 % (36.0-46.0); Hemoglobin 10.1 g/dL (12.2-16.2); Lymphocytes # (auto) 0.5 uL (0.4-5.4); Lymphocytes % (auto) 11.6 % (10.0-50.0); Mean Corpuscular Hemoglobin 33.2 pg (28.0-32.0); Mean Corpuscular Hgb Conc. 33.2 g/dL (32.0-36.0); Mean Corpuscular Volume 100.2 fL (80.0-100.0); Monocytes # (auto) 0.6 uL (0-1.3); Monocytes % (auto) 13.3 % (0.0-12.0); Neutrophils # (auto) 3.2 uL (1.6-8.6); Neutrophils % (auto) 70.5 % (37.0-80.0); Platelet Count (auto) 241 10^3/uL (140-450); Red Blood Cells 3.03 10^6/uL (4.0-5.20); Red Cell Distribution Width 16.3 % (11.8-14.3); White Blood Cell 4.6 10^3/uL (4.4-10.8)
[2019-08-28 06:47] LABS: BUN/Creatinine Ratio 5.3; Calcium 8.1 mg/dL (8.5-10.1)
--- NOTE | 2019-08-28 07:53 | NUR ---
Report given to Shelley Lu, patient is resting no distress.
[2019-08-28 09:00] VITALS: BP 164/74
[2019-08-28] MEDS: cefTRIAXone 1GM/50ML D5W 50 ML IV SCH (09:11)
[2019-08-28] MEDS: CARVEDILOL 3.125 MG TAB PO SCH ×2 (09:11→18:56)
--- NOTE | 2019-08-28 09:30 | NUR ---
IV TO LEFT INNER WRIST NOT FLUSHING WELL, PT REPORTS PAIN TO SITE. IV CATHETER DC'D. IV INSERTION TO LEFT OUTER WRIST #22, FLUSHING WELL. PT TOLERATED PROCEDURE WELL. IV ABX RESUMED.
[2019-08-28] MEDS: MORPHINE SULF INJ 2 MG/ML SYRINGE 1ML IV PRN ×2 (10:59→18:56)
[2019-08-28] MEDS: amLODIPine BESYLATE 5 MG TAB PO SCH (11:00)
[2019-08-28] MEDS: FUROSEMIDE 40 MG TAB PO SCH (11:00)
[2019-08-28] MEDS: PANTOPRAZOLE 40 MG TAB PO SCH (11:01)
[2019-08-28] MEDS: ONDANSETRON HCL 4 MG/2 ML VIAL IV PRN ×2 (11:10→18:56)
[2019-08-28 13:00] VITALS: BP 151/66
--- NOTE | 2019-08-28 13:19 | NUR ---
CLEAN ROOM ASSEMBLER [place] CALLED FOR ACCEPTANCE INTO [facility], RELAYED INFO TO DR. JEREZ PER PT TO BE DISCHARGED ON 08/29/19 CLEAN ROOM ASSEMBLER AWARE OF THIS.
--- NOTE | 2019-08-28 14:05 | NUR ---
PT Patient was vomiting and feeling nauseated during PT visit. Informed JIA Lu and requested to comeback later. Addendum: 08/28/19 at 1407 by MARION PARR PTT Amended: Links added.
--- NOTE | 2019-08-28 15:06 | NUR ---
D/C Planning Placed followed up called to Gilda with [facility] Ph:). Per Gilda patient has been accepted to room [address] Grey. General transport Ph:) will be arrange upon d/c day.
--- NOTE | 2019-08-28 16:02 | NUR ---
NUTRITION ASSESSMENT NOTES Please refer to link notes of nutrition screen form filed under the intervention section of the plan of care for further details. Est. Energy Needs: 5217-2730 kcal (12-15 kcal/kg BW). Est. Protein Needs: 61-73 gms/day (1.0-1.2 gms/kg BW). Will continue to monitor pertinent labs and reassess nutrient need prn Addendum: 08/28/19 at [address] Amended: Links added.
[2019-08-28 17:00] VITALS: BP 154/68
[2019-08-28] MEDS ORDERED: HYDR50TA15 PO (17:21)
[2019-08-28] MEDS ORDERED: ACET1CAP14 PO (17:21)
[2019-08-28] MEDS ORDERED: OXYM0.0511 NAS (17:21)
[2019-08-28] MEDS ORDERED: POTA-220 PO (17:21)
--- NOTE | 2019-08-28 19:30 | NUR ---
Opening Shift Note Assumed care of patient, currently sleeping, eyes closed, easily awakened via verbal stimuli, alert and oriented x4. Currently on room air, no S/S of distress/SOB or pain reported at this time, states " i just got something for pain". Instructed on POC and to call for assist PRN, call light within reach, bed alarm activated, 2 side rails up and bed positioned low, will continue to monitor for changes Q1hr and PRN.
--- NOTE | 2019-08-28 19:55 | NUR ---
BEDPAN PT REQUESTING ASSISTANCE WITH VOIDING, PT ASSISTED WITH BEDPAN, PT ABLE TO ASSIST WITH TURNING, NOTED LEFT HIP ECCHYMOSIS, NO OPEN AREAS WERE NOTED TO SACRUM, CONT CARE
[2019-08-28 20:00] VITALS: BP 162/71
[2019-08-28 22:00] VITALS: BP 162/71
[2019-08-28] MEDS: diphenhdrAMINE HCL 25 MG CAP PO PRN (22:11)
[2019-08-29] MEDS: ONDANSETRON HCL 4 MG/2 ML VIAL IV PRN ×2 (00:23→06:44)
[2019-08-29] MEDS: MORPHINE SULF INJ 2 MG/ML SYRINGE 1ML IV PRN ×3 (00:23→18:08)
--- NOTE | 2019-08-29 02:15 | NUR ---
IV insertion IV access obtained, via clean sterile technique by inserting 22 gauge catheter at Left wrist after 2 attempts. IV secured properly. No trauma to site. Patient tolerated well.
[2019-08-29 05:00] VITALS: BP 143/72
--- NOTE | 2019-08-29 06:51 | NUR ---
PLATELET COUNT CRITICAL OF 17 RECEIVED CRITICAL, PT ASYMPTOMATIC, NO DISTRESS NOTED AT THIS TIME, FLOWER MAKER HOSPITALIST PAGED, CONT TO CLOSELY MONITOR
[2019-08-29] MEDS: CARVEDILOL 3.125 MG TAB PO SCH ×2 (08:40→18:07)
[2019-08-29] MEDS: cefTRIAXone 1GM/50ML D5W 50 ML IV SCH (08:41)
[2019-08-29 09:00] VITALS: BP 150/69
--- NOTE | 2019-08-29 10:40 | NUR ---
DR. MAGAÑA IN TO SEE PT. PLAN OF CARE DISCUSSED. MD MADE AWARE OF EMETIC EPISODES.
[2019-08-29] MEDS: FUROSEMIDE 40 MG TAB PO SCH (10:41)
[2019-08-29] MEDS: PANTOPRAZOLE 40 MG TAB PO SCH (10:41)
[2019-08-29] MEDS: amLODIPine BESYLATE 5 MG TAB PO SCH (10:41)
--- NOTE | 2019-08-29 10:51 | NUR ---
DR. PERALES PAGED FOR DIALYSIS REQUEST. MESSAGE LEFT AT OFFICE (SPOKE TO REP: ISRRAEL)
[2019-08-29] MEDS ORDERED: PROMETHAZINE HCL 25 MG/ML 1ML IV PRN (11:00)
--- NOTE | 2019-08-29 11:01 | NUR ---
DR. BARROW (NEPHRO) TO SET UP DIALYSIS.
[2019-08-29] MEDS ORDERED: SODIUM CHL 0.9% 1000 ML BAG XX ONE (11:30)
[2019-08-29 13:00] VITALS: BP 143/73
[2019-08-29 17:00] VITALS: BP 142/70
--- NOTE | 2019-08-29 19:15 | NUR ---
Opening Shift Note Assumed care of patient, currently sleeping, eyes closed, easily awakened via verbal stimuli, alert and oriented x4. Currently on room air, no S/S of distress/SOB or pain reported. Instructed on POC and to call for assist PRN, call light within reach, bed alarm activated, 2 side rails up and bed positioned low, will continue to monitor for changes Q1hr and PRN.noted jocelyn catheter to right upper chest no sign redness swelling drainage dressing clean dry and intact Signed: 08/30/19 at 025 by EDUARDO ESTRELLA SN <Co-Signature Required> Co-Signed: 08/30/19 at 256 by Michelle Sewell RN
[2019-08-29 20:00] VITALS: BP 143/66
[2019-08-29] MEDS: ACETAMINOPHEN 500 MG TAB PO PRN (21:06)
--- NOTE | 2019-08-29 21:28 | NUR ---
DIALYSIS NURSE AT BEDSIDE FOR TREATMENT
[2019-08-29 22:00] VITALS: BP 143/66
--- NOTE | 2019-08-30 00:30 | NUR ---
DIALYSIS COMPLETE PT ASYMPTOMATIC, TOLERATED WELL, 1.7LITGERS WERE REMOVED, CONT CARE
[2019-08-30 04:12] VITALS: BP 159/74
[2019-08-30] MEDS: MORPHINE SULF INJ 2 MG/ML SYRINGE 1ML IV PRN ×2 (05:45→14:37)
[2019-08-30 07:29] LABS: Calcium 8.6 mg/dL (8.5-10.1); Potassium 4.2 mmol/L (3.5-5.1)
[2019-08-30 07:33] LABS: Albumin 2.7 g/dL (3.4-5.0); BUN/Creatinine Ratio 4.2; Magnesium 2.1 mg/dL (1.6-2.6)
[2019-08-30 07:36] LABS: Bilirubin, Total 0.5 mg/dL (0.2-1.0); Total Protein 7.6 g/dL (6.4-8.2)
[2019-08-30 08:00] VITALS: BP 154/60
--- NOTE | 2019-08-30 08:00 | NUR ---
Received pt resting in bed, call light within reach, no pain reported at this time, will continue to monitor pt.
[2019-08-30] MEDS: CARVEDILOL 3.125 MG TAB PO SCH ×2 (08:55→11:11)
[2019-08-30] MEDS: cefTRIAXone 1GM/50ML D5W 50 ML IV SCH (08:55)
[2019-08-30 09:00] VITALS: BP 147/65
[2019-08-30] MEDS: amLODIPine BESYLATE 5 MG TAB PO SCH (11:10)
[2019-08-30] MEDS: FUROSEMIDE 40 MG TAB PO SCH (11:10)
[2019-08-30] MEDS: PANTOPRAZOLE 40 MG TAB PO SCH (11:11)
[2019-08-30 11:23] LABS: Basophils # (auto) 0.1 10 ^3/uL (0-0.2); Eosinophils # (auto) 0.1 10 ^3/uL (0-0.8); Eosinophils % (auto) 2.5 % (0.0-7.0); Hematocrit 30.7 % (36.0-46.0); Hemoglobin 10.3 g/dL (12.2-16.2); Lymphocytes # (auto) 0.6 10 ^3/uL (0.4-5.4); Lymphocytes % (auto) 12.5 % (10.0-50.0); Mean Corpuscular Hemoglobin 33.4 pg (28.0-32.0); Mean Corpuscular Hgb Conc. 33.4 g/dL (32.0-36.0); Monocytes # (auto) 0.5 10 ^3/uL (0-1.3); Monocytes % (auto) 9.5 % (0.0-12.0); Neutrophils # (auto) 3.8 10 ^3/uL (1.6-8.6); Neutrophils % (auto) 74.5 % (37.0-80.0); Nucleated Red Blood Cells % 0.1 %; Platelet Count (auto) 226 10^3/uL (140-450); Red Blood Cells 3.07 10^6/uL (4.0-5.20); Red Cell Distribution Width 16.4 % (11.8-14.3); White Blood Cell 5.1 10^3/uL (4.4-10.8)
[2019-08-30 13:00] VITALS: BP_SYST 137; BP_SYST 141; BP_DIAS 65; BP_DIAS 67
--- NOTE | 2019-08-30 14:10 | NUR ---
Dr. Grey at bed side to see pt, doctor discussed the plan of care with pt and pt's daughter,
[2019-08-30 15:57] VITALS: BP 139/54
[2019-08-30 16:13] VITALS: BP 139/54
--- NOTE | 2019-08-30 17:10 | NUR ---
Called and give report to JIA Alejo at [facility].
--- NOTE | 2019-08-30 17:15 | NUR ---
General transport here to rock picker pt, Discharge instructions given as ordered. Encourage to follow up with PMD as instructed. All questions and concerns addressed. Patient verbalized understanding. Medication reconciliation form completed and copy given to patient. No home medications held in Pharmacy, and no needed vaccines to be given. IV removed with catheter intact, pressure dressing applied. Telemetry unit returned to ICU. Patient taken to vehicle via gurney with all personal belongings, accompanied by transport staff. No distress noted at time of departure.
== END 2019-08-30 17:35 | DRG 291 ==
LOC: ER 04:29 → EDBD 04:29 → TELE 04:30 → TELE-WESTW 13:34
PROVIDERS: ADMIT Nurse Practitioner Acute Care; ATTEND Internal Medicine
PROC: 5A1D70Z Performance of Urinary Filtration, Intermittent, Less than 6 Hours Per Day (ICD-10-PCS; 2019-08-22)
PROC: 0W993ZZ Drainage of Right Pleural Cavity, Percutaneous Approach (ICD-10-PCS; principal; 2019-08-24)
PROC: 5A1D70Z Performance of Urinary Filtration, Intermittent, Less than 6 Hours Per Day (ICD-10-PCS; 2019-08-25)
PROC: 5A1D70Z Performance of Urinary Filtration, Intermittent, Less than 6 Hours Per Day (ICD-10-PCS; 2019-08-29)
DX: I13.2 Hypertensive heart and chronic kidney disease with heart failure and with stage 5 chronic kidney disease, or end stage renal disease (principal); N18.6 End stage renal disease; I50.43 Acute on chronic combined systolic (congestive) and diastolic (congestive) heart failure; D68.59 Other primary thrombophilia; N30.00 Acute cystitis without hematuria; J91.8 Pleural effusion in other conditions classified elsewhere; W18.30XA Fall on same level, unspecified, initial encounter; E66.9 Obesity, unspecified; D63.8 Anemia in other chronic diseases classified elsewhere; G89.29 Other chronic pain; I48.91 Unspecified atrial fibrillation; M81.0 Age-related osteoporosis without current pathological fracture; E88.09 Other disorders of plasma-protein metabolism, not elsewhere classified; M19.90 Unspecified osteoarthritis, unspecified site; K21.9 Gastro-esophageal reflux disease without esophagitis; M54.9 Dorsalgia, unspecified; B96.20 Unspecified Escherichia coli [E. coli] as the cause of diseases classified elsewhere; W06.XXXA Fall from bed, initial encounter; S93.402A Sprain of unspecified ligament of left ankle, initial encounter; E11.9 Type 2 diabetes mellitus without complications; J45.909 Unspecified asthma, uncomplicated; S90.32XA Contusion of left foot, initial encounter; Z79.01 Long term (current) use of anticoagulants; Y93.89 Activity, other specified; Z99.2 Dependence on renal dialysis; Z80.0 Family history of malignant neoplasm of digestive organs; Y92.89 Other specified places as the place of occurrence of the external cause; Y99.8 Other external cause status; Z79.899 Other long term (current) drug therapy; Z88.0 Allergy status to penicillin
CPT/HCPCS: 10022; 36415; 71045; 72131; 73502; 73562; 73610; 73630; 76604; 76942; 80048; 80053; 81001; 83735; 85025; 85610; 85730; 87081; 87086; 87088; 87186; 90935; 93005; 93926; 93971; 94640; 97110; 97116; 97530; G0378; J0696; J0885; J1642; J2405; J3490

== ENCOUNTER 2019-10-10 12:19 | Inpatient (IN) | payer MEDICARE, MEDICAID ==
[~2019-10-10] VITALS: Ht 162.6 cm; Wt 67.1 kg
[~2019-10-10 12:19] MED LIST changes: +ACET1CAP14 PO; +HYDR50TA15 PO; +OXYM0.0511 NAS; +POTA-220 PO
[2019-10-10 13:43] LABS: Basophils # (auto) 0.1 10 ^3/uL (0-0.2); Eosinophils # (auto) 0.1 10 ^3/uL (0-0.8); Eosinophils % (auto) 0.9 % (0.0-7.0); Hematocrit 27.6 % (36.0-46.0); Hemoglobin 9.8 g/dL (12.2-16.2); Lymphocytes # (auto) 0.8 10 ^3/uL (0.4-5.4); Lymphocytes % (auto) 9.5 % (10.0-50.0); Mean Corpuscular Hemoglobin 35.6 pg (28.0-32.0); Mean Corpuscular Hgb Conc. 35.4 g/dL (32.0-36.0); Mean Corpuscular Volume 100.7 fL (80.0-100.0); Monocytes # (auto) 0.6 10 ^3/uL (0-1.3); Monocytes % (auto) 7.9 % (0.0-12.0); Neutrophils # (auto) 6.5 10 ^3/uL (1.6-8.6); Neutrophils % (auto) 80.7 % (37.0-80.0); Platelet Count (auto) 320 10^3/uL (140-450); Red Blood Cells 2.74 10^6/uL (4.0-5.20); Red Cell Distribution Width 17.5 % (11.8-14.3)
[2019-10-10 13:58] LABS: Albumin 2.5 g/dL (3.4-5.0); Calcium 7.7 mg/dL (8.5-10.1); Potassium 3.5 mmol/L (3.5-5.1)
[2019-10-10 14:01] LABS: BUN/Creatinine Ratio 4.3; Bilirubin, Total 0.5 mg/dL (0.2-1.0); Total Protein 6.4 g/dL (6.4-8.2)
[2019-10-10] MEDS ORDERED: ONDANSETRON HCL 4 MG/2 ML VIAL IV ONE (14:30)
[2019-10-10] MEDS ORDERED: MORPHINE SULFATE 4 MG/ML SYR/VIAL IV ONE (14:30)
[2019-10-10] MEDS ORDERED: DEXTROSE (50%) 50ML SYRG IV PRN (16:30)
[2019-10-10] MEDS ORDERED: ACETAMINOPHEN 500 MG TAB PO PRN (16:30)
[2019-10-10] MEDS ORDERED: NITROGLYCERIN 0.4 MG SL TAB SL PRN (16:30)
[2019-10-10] MEDS ORDERED: MORPHINE SULF INJ 2 MG/ML SYRINGE 1ML IV PRN (16:30)
[2019-10-10] MEDS ORDERED: DOCUSATE SOD 100 MG CAP PO PRN (16:30)
[2019-10-10] MEDS: InsuLIN REG 1unit/0.01ml Soln (100units/ml) SC SCH ×2 (17:00→22:00)
[2019-10-10] MEDS: ACCU-CHEK COMFORT CURVE STRIP VI SCH ×2 (17:04→22:08)
[2019-10-10] MEDS: HYDROcodone-ACET 5/325MG TAB PO PRN (17:43)
[2019-10-10 18:30] VITALS: BP 176/92
[2019-10-10] MEDS: APIXABAN 5 MG TAB PO SCH (21:35)
[2019-10-10] MEDS: CARVEDILOL 3.125 MG TAB PO SCH (21:35)
[2019-10-10 21:48] VITALS: BP 177/89
[2019-10-10] MEDS ORDERED: FAMOTIDINE 20 MG TAB PO SCH (22:00)
[2019-10-10] MEDS: ONDANSETRON HCL 4 MG/2 ML VIAL IV PRN (22:14)
[2019-10-11] MEDS: MORPHINE SULF INJ 2 MG/ML SYRINGE 1ML IV PRN ×3 (01:08→17:30)
[2019-10-11] MEDS: HYDROcodone-ACET 5/325MG TAB PO PRN ×2 (04:06→22:52)
[2019-10-11] MEDS: ONDANSETRON HCL 4 MG/2 ML VIAL IV PRN ×3 (04:06→17:30)
[2019-10-11 05:20] VITALS: BP 161/86
[2019-10-11] MEDS: InsuLIN REG 1unit/0.01ml Soln (100units/ml) SC SCH ×4 (06:12→22:00)
[2019-10-11] MEDS: ACCU-CHEK COMFORT CURVE STRIP VI SCH ×4 (06:12→22:52)
[2019-10-11 09:00] VITALS: BP 153/73
[2019-10-11] MEDS: amLODIPine BESYLATE 5 MG TAB PO SCH (09:22)
[2019-10-11] MEDS: CARVEDILOL 3.125 MG TAB PO SCH ×2 (09:22→22:53)
[2019-10-11] MEDS: APIXABAN 5 MG TAB PO SCH ×2 (09:23→22:53)
[2019-10-11 11:48] LABS: Basophils # (auto) 0.1 10 ^3/uL (0-0.2); Eosinophils # (auto) 0.1 10 ^3/uL (0-0.8); Hemoglobin 9.2 g/dL (12.2-16.2); Mean Corpuscular Hgb Conc. 33.7 g/dL (32.0-36.0); Monocytes # (auto) 0.6 10 ^3/uL (0-1.3); Red Blood Cells 2.67 10^6/uL (4.0-5.20); White Blood Cell 7.7 10^3/uL (4.4-10.8)
[2019-10-11 11:50] LABS: Basophils % (auto) 0.8 % (0.0-2.0); Eosinophils % (auto) 1.3 % (0.0-7.0); Hematocrit 27.2 % (36.0-46.0); Lymphocytes # (auto) 1.1 10 ^3/uL (0.4-5.4); Lymphocytes % (auto) 13.9 % (10.0-50.0); Mean Corpuscular Hemoglobin 34.3 pg (28.0-32.0); Mean Corpuscular Volume 101.7 fL (80.0-100.0); Monocytes % (auto) 8.1 % (0.0-12.0); Neutrophils # (auto) 5.8 10 ^3/uL (1.6-8.6); Neutrophils % (auto) 75.9 % (37.0-80.0); Platelet Count (auto) 286 10^3/uL (140-450); Red Cell Distribution Width 17.3 % (11.8-14.3)
[2019-10-11 12:03] LABS: Albumin 2.5 g/dL (3.4-5.0); Potassium 3.8 mmol/L (3.5-5.1)
[2019-10-11 12:07] LABS: BUN/Creatinine Ratio 4.6; Bilirubin, Total 0.7 mg/dL (0.2-1.0); Total Protein 6.7 g/dL (6.4-8.2)
[2019-10-11] MEDS ORDERED: IOHEXOL 350 MG/ML 100ML IJ ONE (12:32)
[2019-10-11 17:00] VITALS: BP 148/76
[2019-10-11 22:00] VITALS: BP 166/88
[2019-10-11] MEDS: PANTOPRAZOLE 40 MG TAB PO SCH (22:52)
[2019-10-12 05:00] VITALS: BP 159/70
[2019-10-12] MEDS: ACCU-CHEK COMFORT CURVE STRIP VI SCH ×2 (06:48→11:43)
[2019-10-12] MEDS: InsuLIN REG 1unit/0.01ml Soln (100units/ml) SC SCH ×2 (06:48→11:30)
[2019-10-12] MEDS ORDERED: SODIUM CHL 0.9% 1000 ML BAG XX ONE (07:00)
[2019-10-12 08:55] VITALS: BP 150/65
[2019-10-12] MEDS: CARVEDILOL 3.125 MG TAB PO SCH (11:42)
[2019-10-12] MEDS: PANTOPRAZOLE 40 MG TAB PO SCH (11:43)
[2019-10-12] MEDS: amLODIPine BESYLATE 5 MG TAB PO SCH (11:43)
[2019-10-12] MEDS: APIXABAN 5 MG TAB PO SCH (11:43)
[2019-10-12] MEDS: HYDROcodone-ACET 5/325MG TAB PO PRN (11:44)
[2019-10-12 13:00] VITALS: BP 167/71
[2019-10-12] MEDS: MORPHINE SULF INJ 2 MG/ML SYRINGE 1ML IV PRN (14:44)
[2019-10-12] MEDS ORDERED: EPOETIN ALFA 4,000 UNIT/ML VL SC ONE (21:00)
== END 2019-10-12 16:53 | disposition home health service (06) | DRG 314 ==
LOC: EDBD 12:19 → ER 12:19 → TELE 12:20 → TELE-WESTW 20:36
PROVIDERS: ADMIT Nurse Practitioner Acute Care; ATTEND Internal Medicine
PROC: 5A1D70Z Performance of Urinary Filtration, Intermittent, Less than 6 Hours Per Day (ICD-10-PCS; principal; 2019-10-12)
DX: T82.858A Stenosis of other vascular prosthetic devices, implants and grafts, initial encounter (principal); N18.6 End stage renal disease; E44.0 Moderate protein-calorie malnutrition; I13.2 Hypertensive heart and chronic kidney disease with heart failure and with stage 5 chronic kidney disease, or end stage renal disease; I87.8 Other specified disorders of veins; Z99.2 Dependence on renal dialysis; M79.89 Other specified soft tissue disorders; I48.91 Unspecified atrial fibrillation; G89.29 Other chronic pain; M54.9 Dorsalgia, unspecified; D63.1 Anemia in chronic kidney disease; E78.5 Hyperlipidemia, unspecified; Z68.25 Body mass index [BMI] 25.0-25.9, adult; Z88.0 Allergy status to penicillin; E11.22 Type 2 diabetes mellitus with diabetic chronic kidney disease; I50.9 Heart failure, unspecified
CPT/HCPCS: 36415; 71260; 80053; 82962; 83036; 85025; 87081; 93971; G0378; J2405

== ENCOUNTER 2020-03-22 17:48 | Inpatient (IN) | payer MEDICARE, MEDICAID ==
[~2020-03-22] VITALS: Ht 162.6 cm; Wt 58.1 kg
[~2020-03-22 17:48] MED LIST changes: -ACET1CAP14 PO; -HYDR50TA15 PO; -MEGE40TA15 PO
[2020-03-22] MEDS ORDERED: DEXTROSE 10% 1,000 ML IV ONE ×2 (18:00→18:30)
[2020-03-22 18:29] LABS: Basophils # (auto) 0.1 10 ^3/uL (0-0.2); Basophils % (auto) 0.9 % (0.0-2.0); Eosinophils # (auto) 0.2 10 ^3/uL (0-0.8); Eosinophils % (auto) 3.1 % (0.0-7.0); Hematocrit 32.8 % (36.0-46.0); Hemoglobin 11.3 g/dL (12.2-16.2); Lymphocytes # (auto) 1.4 10 ^3/uL (0.4-5.4); Mean Corpuscular Hemoglobin 33.5 pg (28.0-32.0); Mean Corpuscular Hgb Conc. 34.3 g/dL (32.0-36.0); Mean Corpuscular Volume 97.7 fL (80.0-100.0); Monocytes # (auto) 0.6 10 ^3/uL (0-1.3); Neutrophils # (auto) 3.6 10 ^3/uL (1.6-8.6); Nucleated Red Blood Cells % 0.1 %; Platelet Count (auto) 276 10^3/uL (140-450); Red Blood Cells 3.36 10^6/uL (4.0-5.20); Red Cell Distribution Width 13.5 % (11.8-14.3); White Blood Cell 5.8 10^3/uL (4.4-10.8)
[2020-03-22 18:39] LABS: INR 1.06 (0.9-1.15); Partial Thromboplastin Time 28.7 sec (23.0-31.2)
[2020-03-22] MEDS ORDERED: cefTRIAXone 1GM/50ML D5W 50 ML IV ONE (18:45)
[2020-03-22 18:54] LABS: Chloride 95 mmol/L (98-107); Potassium 3.8 mmol/L (3.5-5.1); Sodium 129 mmol/L (136-145)
[2020-03-22 19:02] LABS: Alanine Aminotransferase 29 U/L (13-56); Albumin 3.3 g/dL (3.4-5.0); Alkaline Phosphatase 150 U/L (45-117); Anion Gap 6 (5-15); Aspartate Aminotransferase 22 U/L (15-37); BUN/Creatinine Ratio 6.5; Bilirubin, Total 0.4 mg/dL (0.2-1.0); Blood Alcohol < 3.0 mg/dL (0-5); Blood Urea Nitrogen 22 mg/dL (7-18); Calcium 8.4 mg/dL (8.5-10.1); Carbon Dioxide 28 mmol/L (21-32); GFR African American 17 mL/min; GFR Non-African American 14 mL/min; Glucose 163 mg/dL (74-106); Total Protein 6.8 g/dL (6.4-8.2)
[2020-03-22 20:08] LABS: CRP High Sensitivity 0.05 mg/dL (< 0.3)
[2020-03-22] MEDS ORDERED: DOCUSATE SOD 100 MG CAP PO PRN (21:30)
[2020-03-22] MEDS ORDERED: DEXTROSE (50%) 50ML SYRG IV PRN (21:30)
[2020-03-22] MEDS ORDERED: NITROGLYCERIN 0.4 MG SL TAB SL PRN (21:30)
[2020-03-22] MEDS ORDERED: ACETAMINOPHEN 325 MG TAB PO PRN (21:30)
[2020-03-22] MEDS ORDERED: ONDANSETRON HCL 4 MG/2 ML VIAL IV PRN (21:30)
[2020-03-22] MEDS: SODIUM CHLORIDE 0.9% 1,000 ML IV SCH (22:51)
[2020-03-22] MEDS: HYDROcodone-ACET 5/325MG TAB PO PRN (22:51)
[2020-03-23] MEDS: ACCU-CHEK COMFORT CURVE STRIP VI SCH ×6 (00:24→20:03)
[2020-03-23] MEDS: HYDROcodone-ACET 5/325MG TAB PO PRN ×4 (03:34→22:10)
[2020-03-23] MEDS: InsuLIN REG 1unit/0.01ml Soln (100units/ml) SC SCH ×6 (03:43→20:00)
[2020-03-23 06:58] LABS: Basophils # (auto) 0.1 10 ^3/uL (0-0.2); Basophils % (auto) 0.8 % (0.0-2.0); Eosinophils # (auto) 0.2 10 ^3/uL (0-0.8); Eosinophils % (auto) 2.6 % (0.0-7.0); Hematocrit 30.7 % (36.0-46.0); Hemoglobin 10.4 g/dL (12.2-16.2); Lymphocytes # (auto) 1.3 10 ^3/uL (0.4-5.4); Lymphocytes % (auto) 16.4 % (10.0-50.0); Mean Corpuscular Hemoglobin 33.4 pg (28.0-32.0); Mean Corpuscular Hgb Conc. 34.1 g/dL (32.0-36.0); Mean Corpuscular Volume 98.2 fL (80.0-100.0); Monocytes # (auto) 0.7 10 ^3/uL (0-1.3); Monocytes % (auto) 9.3 % (0.0-12.0); Neutrophils # (auto) 5.5 10 ^3/uL (1.6-8.6); Neutrophils % (auto) 70.9 % (37.0-80.0); Platelet Count (auto) 271 10^3/uL (140-450); Red Blood Cells 3.12 10^6/uL (4.0-5.20); Red Cell Distribution Width 13.3 % (11.8-14.3); White Blood Cell 7.7 10^3/uL (4.4-10.8)
[2020-03-23 07:26] LABS: BUN/Creatinine Ratio 7.2; Calcium 8.7 mg/dL (8.5-10.1); Potassium 4.3 mmol/L (3.5-5.1)
[2020-03-23 08:01] LABS: Cholesterol 166 mg/dL (< 200); HDL Cholesterol 96 mg/dL (40-59); LDL Cholesterol 53 mg/dL (< 100); Triglycerides 108 mg/dL (< 150)
[2020-03-23] MEDS: cefTRIAXone 1GM/50ML D5W 50 ML IV SCH (10:02)
[2020-03-23] MEDS ORDERED: FUROSEMIDE 20 MG TAB PO ONE (12:15)
[2020-03-23] MEDS ORDERED: amLODIPine BESYLATE 5 MG TAB PO ONE (12:15)
[2020-03-23] MEDS ORDERED: FAMOTIDINE 20 MG TAB PO ONE (12:15)
[2020-03-23] MEDS: SODIUM CHLORIDE 0.9% 1,000 ML IV SCH (13:07)
--- NOTE | 2020-03-23 16:12 | NUR ---
Telemetry admit from ER FLORENTINOCLEMENCIA admitted to Telemetry unit after SBAR received. Patient oriented to Lisa matthew RN, unit, room, bed, and unit policies regarding patient care and visiting hours. Patient now on continuous telemetry monitoring, tele box # 25 and telemetry reading on arrival to unit is NSR. Patient weighed by bedscale and encouraged to call if they need something. All questions and concerns addressed, patient verbalized understanding.
[2020-03-23 16:50] VITALS: BP 144/76
[2020-03-23] MEDS ORDERED: PANT40T PO (17:30)
[2020-03-23] MEDS ORDERED: GLIP10TA9 PO (17:30)
--- NOTE | 2020-03-23 19:45 | NUR ---
Opening Shift Note Assumed care of patient, awake and alert. No S/S of distress/SOB noted. Instructed on POC and to call for assist PRN. Bed is in lowest locked position with bed rails up x2 and call light is within reach of the patient.
[2020-03-23 22:00] VITALS: BP 157/73
[2020-03-23] MEDS: APIXABAN 5 MG TAB PO SCH (22:10)
[2020-03-23 22:33] VITALS: BP 157/73
[2020-03-24 02:26] LABS: Urine Bacteria FEW /hpf (None Seen); Urine Blood TRACE /uL (Negative); Urine Budding Yeast OCCASIONAL /hpf (None Seen); Urine Specific Gravity 1.009 (1.001-1.035); Urine WBC 28 /hpf (0 - 5)
[2020-03-24 02:43] LABS: Alcohol, Urine < 3.0 mg/dL (0-10); Amphetamine Screen, Urine NEGATIVE (NEGATIVE); Barbiturate Scree,Urine NEGATIVE (NEGATIVE); Benzodiazephine Screen, Urine NEGATIVE (NEGATIVE); Cocaine Screen, Urine NEGATIVE (NEGATIVE); Opiate Scree,Urine NEGATIVE (NEGATIVE); Phencyclidine Screen, Urine NEGATIVE (NEGATIVE)
[2020-03-24 02:49] LABS: Cannabinoid Screen, Urine POSITIVE (NEGATIVE)
[2020-03-24] MEDS: InsuLIN REG 1unit/0.01ml Soln (100units/ml) SC SCH ×7 (04:00→23:26)
[2020-03-24] MEDS: ACCU-CHEK COMFORT CURVE STRIP VI SCH ×7 (04:00→23:27)
[2020-03-24] MEDS: SODIUM CHLORIDE 0.9% 1,000 ML IV SCH ×2 (05:52→23:28)
[2020-03-24] MEDS: HYDROcodone-ACET 5/325MG TAB PO PRN ×2 (05:57→20:43)
[2020-03-24 06:11] VITALS: BP 153/70
[2020-03-24] MEDS ORDERED: SODIUM CHL 0.9% 1000 ML BAG XX ONE (07:00)
--- NOTE | 2020-03-24 08:00 | NUR ---
OPENING SHIFT NOTE ASSUMED CARE OF PATIENT AWAKE AND ALERT. NO S/S OF DISTRESS NOTED OR COMPLAINTS OF PAIN. PATIENT UPDATED ON POC FOR THE DAY AND ALL QUESTIONS ANSWERED. BED IS IN LOWEST, LOCKED POSITION WITH SIDE RAILS UP X2, CALL LIGHT WITHIN REACH, AND BED ALARM ON FOR SAFETY. WILL CONTINUE TO MONITOR Q1H AND PRN.
[2020-03-24 09:00] VITALS: BP 158/76
[2020-03-24] MEDS: cefTRIAXone 1GM/50ML D5W 50 ML IV SCH (11:12)
[2020-03-24] MEDS: APIXABAN 5 MG TAB PO SCH ×2 (11:12→23:03)
[2020-03-24] MEDS: FUROSEMIDE 20 MG TAB PO SCH (11:13)
[2020-03-24] MEDS: FAMOTIDINE 20 MG TAB PO SCH (11:13)
[2020-03-24] MEDS: amLODIPine BESYLATE 5 MG TAB PO SCH (11:13)
[2020-03-24] MEDS: POTASSIUM CHL 20 Meq TABLET PO SCH (11:13)
[2020-03-24 13:00] VITALS: BP 160/72
[2020-03-24 16:56] VITALS: BP 159/70
[2020-03-24 22:00] VITALS: BP 172/68
[2020-03-25] MEDS: InsuLIN REG 1unit/0.01ml Soln (100units/ml) SC SCH ×4 (04:00→16:00)
[2020-03-25] MEDS: ACCU-CHEK COMFORT CURVE STRIP VI SCH ×4 (04:29→17:03)
[2020-03-25 05:00] VITALS: BP 167/83
[2020-03-25] MEDS: HYDROcodone-ACET 5/325MG TAB PO PRN ×2 (05:15→11:05)
--- NOTE | 2020-03-25 07:09 | NUR ---
Called/paged called re:BP 171/74 , HR 71 . Waiting for call back. Continue care.
--- NOTE | 2020-03-25 07:11 | NUR ---
returned call returned call, updated on patient status and reason for call, orders received. Norvasc 10 mg ( daily dose ) PO to be given. Continue care.
[2020-03-25] MEDS: amLODIPine BESYLATE 5 MG TAB PO SCH (07:16)
[2020-03-25 08:43] VITALS: BP 181/81
[2020-03-25] MEDS: cefTRIAXone 1GM/50ML D5W 50 ML IV SCH (10:11)
[2020-03-25] MEDS: APIXABAN 5 MG TAB PO SCH (10:11)
[2020-03-25] MEDS: FUROSEMIDE 20 MG TAB PO SCH (10:12)
[2020-03-25] MEDS: POTASSIUM CHL 20 Meq TABLET PO SCH (10:12)
[2020-03-25] MEDS: FAMOTIDINE 20 MG TAB PO SCH (10:12)
[2020-03-25] MEDS ORDERED: cloNIDine HCL 0.1 MG TAB PO PRN (11:15)
[2020-03-25 13:00] VITALS: BP 184/89
[2020-03-25] MEDS: SODIUM CHLORIDE 0.9% 1,000 ML IV SCH (16:10)
[2020-03-25 17:00] VITALS: BP 146/73
[2020-03-25 17:14] VITALS: BP 146/73
--- NOTE | 2020-03-25 18:39 | NUR ---
discharge instructions provided to pt. pt verbalized understanding for prescrion and follow up appointments with nephrology and cardiology. educational materials provided, all questions and concerns addressed. IV catheter DC catheter intact, no phlebitis. tele box removed and returned to tele dept. pt safely escorted out of unit via wheelchair.
[2020-03-26] MEDS ORDERED: SODIUM CHL 0.9% 1000 ML BAG XX ONE (07:00)
[2020-03-26] MEDS ORDERED: EPOETIN ALFA 4,000 UNIT/ML VL SC ONE (21:00)
== END 2020-03-25 18:40 | disposition home or self-care (01) | DRG 280 ==
LOC: ER 17:48 → EDBD 17:48 → OVERFLOW 17:49 → TELE-CENTR 03-23 15:59
PROVIDERS: ADMIT Hospitalist; ATTEND Family Medicine
PROC: 5A1D70Z Performance of Urinary Filtration, Intermittent, Less than 6 Hours Per Day (ICD-10-PCS; principal; 2020-03-24)
DX: I21.4 Non-ST elevation (NSTEMI) myocardial infarction (principal); N18.6 End stage renal disease; G92 Toxic encephalopathy; I50.41 Acute combined systolic (congestive) and diastolic (congestive) heart failure; I13.2 Hypertensive heart and chronic kidney disease with heart failure and with stage 5 chronic kidney disease, or end stage renal disease; E87.1 Hypo-osmolality and hyponatremia; N39.0 Urinary tract infection, site not specified; I48.20 Chronic atrial fibrillation, unspecified; E11.649 Type 2 diabetes mellitus with hypoglycemia without coma; E11.22 Type 2 diabetes mellitus with diabetic chronic kidney disease; D63.1 Anemia in chronic kidney disease; T68.XXXA Hypothermia, initial encounter; E11.40 Type 2 diabetes mellitus with diabetic neuropathy, unspecified; Z99.2 Dependence on renal dialysis; Z03.818 Encounter for observation for suspected exposure to other biological agents ruled out; J45.909 Unspecified asthma, uncomplicated; Z80.0 Family history of malignant neoplasm of digestive organs; Z88.0 Allergy status to penicillin
CPT/HCPCS: 36415; 70450; 71045; 74176; 80048; 80053; 80061; 80307; 80320; 81001; 82728; 82962; 83036; 83605; 83615; 84484; 85025; 85610; 85730; 86141; 87040; 87081; 87426; 90935; 93005; 96361; 96365; 96366; 97163; 99291; G0378; J0696